=== PATIENT | male | born 1990 | race Caucasian/White ===

== ENCOUNTER → 2018-03-03 | Outpatient (CLI) | payer OTHER ==
[~2018-03-03] MED LIST: METOPROLOL TARTRATE 5 MG/5 ML VIAL IVP ONE
--- NOTE | 2018-03-03 11:23 | NM ---
EXAMINATION TYPE: NM stress cardiolite complete DATE OF EXAM: 03/03/2018 COMPARISON: NONE HISTORY: Precordial chest pain TECHNIQUE: After the intravenous administration of 10.02 mCi Tc 99m Sestamibi - Rest images obtained 45 minutes post injection. The patient exercised using a SIMONE protocol and 1 minute prior to peak exercise was injected with 25.5 mCi Tc 99m Sestamibi - Stress images obtained 10 minutes post inject ion. FINDINGS: Targeted heart rate was achieved during performance of the study. Review of stress and rest SPECT vipin ges demonstrates decreased perfusion involving the inferior wall and inferolateral wall on stress vipin ges. Stress-induced ischemia is not excluded. Gated analysis shows normal wall motion with an estimat ed left ventricular ejection fraction of 53 %. IMPRESSION: Stress-induced ischemia involving the inferior wall and inferior lateral wall difficult to exclude.
--- NOTE | 2018-03-03 14:12 | EST ---
EXERCISE STRESS DATE OF SERVICE: March 03, 2018 AGE: 27 SEX: M HT: 72" WT: 250 PROTOCOL: Cardiolite Satish Stress Test STAGE: II DURATION OF EXERCISE: 6::50 HEART RATE REST: 118 BLOOD PRESSURE REST: 144/87 MAXIMUM HEART RATE ACHIEVED: 196 MAXIMUM BLOOD PRESSURE: 219/86 85% MPHR: 166 100% MPHR: 195 METS: 8.1 INDICATIONS: Abnormal EKG CLINICAL INFORMATION: STRESS DATA: Pretesting physical examination showed heart rate of 118, pressure is 144/82 mmHg. Baseline EKG showed sinus mechanism. The patient exercised on the treadmill according to Satish protocol for a total of 6 minutes and achieved 8.1 METS. Max heart rate was 196, which is about 100% of maximum predicted heart rate. Maximum blood pressure was 219/86 mmHg. Clinically, the patient did not have any symptoms of chest pain or chest discomfort during the testing or in the recovery time. The EKG did not show any significant ST or T-wave abnormalities concerning for ischemia. CONCLUSION: 1. Average exercise tolerance. 2. Normal EKG in response to exercise without any evidence of ST or T-wave abnormalities concerning for ischemia. 3. Please follow up on the Cardiolite portion on separate report from Radiology Department. MMODL / IJN: [id number] /
== END | disposition home or self-care (01) ==
LOC: RADNMMAIN 07:44
PROVIDERS: ATTEND Family Medicine
DX: R94.31 Abnormal electrocardiogram [ECG] [EKG] (principal)
CPT/HCPCS: 93017; 78452; A9500

== ENCOUNTER 2020-04-13 12:35 | Emergency (ER) | payer BC, OTHER ==
[2020-04-13 12:47] VITALS: RESP 20
[2020-04-13] MEDS ORDERED: diphenhydrAMINE 50 MG/ML 1 ML VIAL IVP STA (12:58)
[2020-04-13] MEDS ORDERED: SODIUM CHLORIDE 0.9% 1,000 ML IV STA (12:58)
[2020-04-13] MEDS ORDERED: METOCLOPRAMIDE 5 MG/ML 2 ML VIAL IVP STA (12:58)
--- NOTE | 2020-04-13 13:15 | ED ---
General Adult HPI - General Source: patient, RN notes reviewed Mode of arrival: ambulatory Limitations: no limitations <Bhaskar Gtz - Last Filed: 04/13/20 14:26> <Adriel Maynard - Last Filed: 04/13/20 14:51> - General Chief complaint: Headache Stated complaint: Migraine Time Seen by Provider: 04/13/20 12:52 - History of Present Illness Initial comments: 29-year-old male presents to the emergency room for a chief complaint of headache 10 days. Patient reports that he developed a headache 10 days ago. Patient states it is a throbbing around the left eye. Patient states she is sensitive to light and sound. He denies nausea vomiting. He denies neck stiffness. Denies fevers or chills. He did go to urgent care and had an injection of Toradol did not help. He was directed to come to the emergency room if his symptoms were not improving.Patient has no other complaints at this time including shortness of breath, chest pain, abdominal pain, nausea or vomiting, or visual changes. (Bhaskar Gtz) - Related Data Home Medications Medication Instructions Recorded Confirmed Cetirizine HCl [Zyrtec] 10 mg PO DAILY 03/10/15 04/13/20 Cholecalciferol [Vitamin D3 (25 1,000 unit PO DAILY 04/13/20 04/13/20 Mcg = 1000 Iu)] Levothyroxine Sodium [Synthroid] 200 mcg PO DAILY 04/13/20 04/13/20 Metoprolol Succinate (ER) [Toprol 25 mg PO DAILY 04/13/20 04/13/20 Xl] Ondansetron Odt [Zofran Odt] 4 mg PO Q8HR PRN 04/13/20 04/13/20 Rizatriptan Odt [Maxalt [employer]] 10 mg PO DAILY PRN MDD 10MG DAILY 04/13/20 04/13/20 Allergies Allergy/AdvReac Type Severity Reaction Status Date / Time No Known Allergies Allergy Verified 04/13/20 14:18 Review of Systems ROS Other: All systems not noted in ROS Statement are negative. <Bhaskar Gtz - Last Filed: 04/13/20 14:26> ROS Other: All systems not noted in ROS Statement are negative. <Adriel Maynard - Last Filed: 04/13/20 14:51> ROS Statement: Those systems with pertinent positive or pertinent negative responses have been documented in the HPI. Past Medical History Past Medical History: Thyroid Disorder Additional Past Medical History / Comment(s): elevated heart rate History of Any Multi-Drug Resistant Organisms: None Reported Past Surgical History: Orthopedic Surgery, Tonsillectomy Additional Past Surgical History / Comment(s): RT KNEE ARTHROSCOPY, LEFT WRIST, SINUS SX Past Anesthesia/Blood Transfusion Reactions: No Reported Reaction Past Psychological History: No Psychological Hx Reported Smoking Status: Never smoker Past Alcohol Use History: Occasional Past Drug Use History: None Reported - Past Family History Mother Family Medical History: No Reported History <Bhaskar Gtz P - Last Filed: 04/13/20 14:26> General Exam Limitations: no limitations General appearance: alert, in no apparent distress Head exam: Present: atraumatic, normocephalic, normal inspection Eye exam: Present: normal appearance, PERRL, EOMI. Absent: scleral icterus, conjunctival injection, periorbital swelling ENT exam: Present: normal exam, mucous membranes moist Neck exam: Present: normal inspection, full ROM. Absent: tenderness, meningismus, lymphadenopathy Respiratory exam: Present: normal lung sounds bilaterally. Absent: respiratory distress, wheezes, rales, rhonchi, stridor Cardiovascular Exam: Present: regular rate, normal rhythm, normal heart sounds. Absent: systolic murmur, diastolic murmur, rubs, gallop, clicks GI/Abdominal exam: Present: soft, normal bowel sounds. Absent: distended, tenderness, guarding, rebound, rigid Neurological exam: Present: alert, oriented X3, CN II-XII intact, normal gait Expanded Patient oriented to: Present: person, place, time Speech: Present: fluid speech Cranial nerves: Tongue Deviation: Normal, Nystagmus: Normal, Facial Sensation: Normal Cerebellar function: Finger to Nose: Normal, Heel to Albert: Normal Upper motor neuron: Pronator Drift: Normal Sensory exam: Upper Extremity Light Touch: Normal, Upper Extremity Pin Prick: Normal, Lower Extremity Light Touch: Normal, Lower Extremity Pin Prick: Normal Motor strength exam: RUE: 5, LUE: 5, RLE: 5, LLE: 5 <Bhaskar Gtz P - Last Filed: 04/13/20 14:26> Course Vital Signs 04/13/20 12:43 Temperature 98.5 F Pulse Rate 116 H Respiratory 20 Rate Blood Pressure 144/65 O2 Sat by Pulse 95 Oximetry Medical Decision Making <Bhaskar Gtz - Last Filed: 04/13/20 14:26> - Radiology Data Radiology results: report reviewed (Computed tomography scan of the brain shows no acute intercranial abnormality, questionable prominence left sylvian fissure, cannot exclude aneurysm. CT angios was done of [place] with no evidence of aneurysm.) <Adriel Maynard - Last Filed: 04/13/20 14:51> - Medical Decision Making Patient has had a headache for 10 days. States this started throughout the morning 10 days ago. When he took a nap and woke up at worsen. No thunderclap headache. No focal neurologic deficits. CT brain showed no acute intracranial abnormality seen however there was a bulbous prominence at the anterior left sylvian fissure, recommending MRA [place] to exclude intracranial aneurysm. I did speak with Dr. Dominguez regarding recommendation of MRA. He is agreeable that CTA will be an appropriate study for this however does not believe it to be an emergent cause of patient's headache. He does not see any associated bleeding. Patient care was signed out to Dr. Maynard at 1430 pending CTA. (Bhaskar Gtz) Patient reexamined and reevaluated by myself, Dr. Maynard. Patient resting comfortably in bed. I do agree. Findings. This includes diagnostic interpretation and treatment plan. Patient states he is feeling better following medications. Patient is updated on results and need for follow-up. (Adriel Maynard) Disposition <Bhaskar Gtz - Last Filed: 04/13/20 14:26> Is patient prescribed a controlled substance at d/c from ED?: No Time of Disposition: 14:51 <Adriel Maynard - Last Filed: 04/13/20 14:51> Clinical Impression: Cephalgia Disposition: HOME SELF-CARE Condition: Stable Instructions (If sedation given, give patient instructions): Acute Headache (ED) Additional Instructions: Please follow-up with primary care physician in the next couple days for recheck. Return for increased pain, weakness, fevers, change in mental status, worsening symptoms or other concerns. Referrals: Helder Shipley MD [Primary Care Provider] - 1-2 days
--- NOTE | 2020-04-13 13:26 | CT ---
EXAMINATION TYPE: CT brain wo con DATE OF EXAM: 04/13/2020 COMPARISON: None HISTORY: 29-year-old male headache, migraine for 10 days TECHNIQUE: Examination was done in axial plane without intravenous contrast. Coronal and sagittal r econstructions performed. CT DLP: 1099.4 mGycm Automated exposure control for dose reduction was used. FINDINGS: There is no evidence of acute intracranial hemorrhage, acute ischemic changes, mass, mass-effect, or extra-axial fluid collection. There is no effacement of cerebral sulci or basal subarachnoid cister ns. There is no hydrocephalus. There is no midline shift. Cohen-white matter distinction is preserv ed. 6 to 7 mm bulbous prominence at the anterior left sylvian fissure on axial image 20 on and coronal im age 32. Mild mucosal thickening right ethmoid air cells. Mastoid air cells are well pneumatized. Orbits and g lobes are intact. IMPRESSION: 1. No acute intracranial abnormality seen. 2. 6 to 7 mm bulbous prominence at the anterior left sylvian fissure is in the vicinity of the expect ed left MCA bifurcation. Recommend MRA [place] to exclude an intracranial aneurysm.
[2020-04-13] MEDS ORDERED: MORPHINE SULFATE 4 MG/ML SYRINGE IVP STA (13:34)
--- NOTE | 2020-04-13 14:39 | CT ---
EXAMINATION TYPE: CT angio C[facility] [place] [facility] [place] DATE OF EXAM: 04/13/2020 COMPARISON: None HISTORY: GR, abn brain CT CT DLP: 1092.6 mGycm Automated exposure control for dose reduction was used. CONTRAST: Performed with IV Contrast, patient injected with 100 mL of Isovue 370. Images were obtained from the skull base to the vertex of the brain with IV contrast and 3-D post pro cessed images. There is arterial flow in the vertebrobasilar artery system. There is arterial flow in the anterior m iddle and posterior cerebral arteries. There is no evidence of intracranial aneurysm or neovascularit y. There is no evidence of hemodynamic stenosis. There is normal contrast opacification of the venous sinuses. There is no mass effect. IMPRESSION: Negative CT angiogram of the brain. The area of increased density in the anterior left sylvian fissur e on the CT scan appears to be confluence of branches of the left middle cerebral artery and not rela minnie to an aneurysm.
[2020-04-13 15:04] VITALS: BP 129/88; PULSE 95; TEMP 98.2
== END 2020-04-13 15:03 | disposition home or self-care (01) ==
LOC: EC 12:35
DX: R51.9 Headache, unspecified (principal); R94.02 Abnormal brain scan; E07.9 Disorder of thyroid, unspecified; Z79.890 Hormone replacement therapy; Z79.899 Other long term (current) drug therapy
CPT/HCPCS: 70496; 70450; 99284; 96374; 96375 ×2; 96361; J2270; J1200; J2765; Q9967

== ENCOUNTER 2020-10-01 20:25 | Emergency (ER) | payer BC ==
[2020-10-01] MEDS ORDERED: ONDANSETRON 4 MG/2 ML VIAL IVP STA (20:36)
[2020-10-01] MEDS ORDERED: diphenhydrAMINE 50 MG/ML 1 ML VIAL IVP STA (20:36)
[2020-10-01] MEDS ORDERED: SODIUM CHLORIDE 0.9% 1,000 ML IV STA (20:36)
[2020-10-01] MEDS ORDERED: MORPHINE SULFATE 4 MG/ML SYRINGE IV STA (20:36)
--- NOTE | 2020-10-01 20:40 | ED ---
Headache HPI - General Chief Complaint: Headache Stated Complaint: Headache Time Seen by Provider: 10/01/20 20:32 Source: patient, RN notes reviewed Mode of arrival: ambulatory Limitations: no limitations - History of Present Illness Initial Comments: Patient is a 30-year-old male that presents to emergency by complaining of headaches for the past 3 weeks. He notes that the headaches come and go several times of the day. He notes that the headache mostly is behind his left eye causing photophobia and nausea. He denied any trauma. He notes that he was diagnosed with migraines last year. But his primary care thinks the step headaches or cluster type headaches as there are located behind one eye last for several hours and go away. Patient is taking all his at home prescriptions as prescribed. He noted that his primary sent him to the emergency room to potentially try high oxygen flow therapy to see if that alleviates any the pain. Patient denied any other symptoms or complaints. He notes the pain is approximately 8 out of 10 when the headaches come on. He denied any chest pain shortness of breath vomiting diarrhea constipation fever fatigue chills. Patient denied any family history of aneurysms. - Related Data Home Medications Medication Instructions Recorded Confirmed Cetirizine HCl [Zyrtec] 10 mg PO DAILY PRN 03/10/15 10/01/20 Cholecalciferol [Vitamin D3 (25 1,000 unit PO DAILY 04/13/20 10/01/20 Mcg = 1000 Iu)] Levothyroxine Sodium [Synthroid] 200 mcg PO DAILY 04/13/20 10/01/20 Ondansetron Odt [Zofran Odt] 4 mg PO Q8HR PRN 04/13/20 10/01/20 Rizatriptan Odt [Maxalt [employer]] 10 mg PO DAILY PRN MDD 10MG DAILY 04/13/20 10/01/20 HYDROcodone/APAP 7.5-325MG [[place] 1 tab PO Q6H PRN 10/01/20 10/01/20 7.5-325] Metoprolol Succinate [Toprol XL] 50 mg PO DAILY 10/01/20 10/01/20 Ubrogepant [Ubrelvy] 100 mg PO DAILY PRN 10/01/20 10/01/20 Verapamil HCl [Verapamil ER] 240 mg PO DAILY 10/01/20 10/01/20 traZODone HCL [Desyrel] 50 mg PO HS PRN 10/01/20 10/01/20 Allergies Allergy/AdvReac Type Severity Reaction Status Date / Time No Known Allergies Allergy Verified 10/01/20 21:47 Review of Systems ROS Statement: Those systems with pertinent positive or pertinent negative responses have been documented in the HPI. ROS Other: All systems not noted in ROS Statement are negative. Past Medical History Past Medical History: Thyroid Disorder Additional Past Medical History / Comment(s): elevated heart rate, migraines and cluster headaches History of Any Multi-Drug Resistant Organisms: None Reported Past Surgical History: Orthopedic Surgery, Tonsillectomy Additional Past Surgical History / Comment(s): RT KNEE ARTHROSCOPY, LEFT WRIST, SINUS SX Past Anesthesia/Blood Transfusion Reactions: No Reported Reaction Past Psychological History: No Psychological Hx Reported Smoking Status: Never smoker Past Alcohol Use History: Occasional Past Drug Use History: None Reported - Past Family History Mother Family Medical History: No Reported History General Exam Limitations: no limitations General appearance: alert, in no apparent distress, obese Head exam: Present: atraumatic, normocephalic, normal inspection Eye exam: Present: normal appearance, PERRL, EOMI. Absent: scleral icterus, conjunctival injection, periorbital swelling Neck exam: Present: normal inspection Respiratory exam: Present: normal lung sounds bilaterally. Absent: respiratory distress, wheezes, rales, rhonchi, stridor Cardiovascular Exam: Present: regular rate, normal rhythm, normal heart sounds. Absent: systolic murmur, diastolic murmur, rubs, gallop, clicks GI/Abdominal exam: Present: soft, normal bowel sounds. Absent: distended, tenderness, guarding, rebound, rigid Extremities exam: Present: normal inspection, full ROM, normal capillary refill. Absent: tenderness, pedal edema, joint swelling, calf tenderness Neurological exam: Present: alert, oriented X3 Psychiatric exam: Present: normal affect, normal mood Skin exam: Present: warm, dry, intact, normal color. Absent: rash Course Vital Signs 10/01/20 20:29 Temperature 98.6 F Pulse Rate 109 H Respiratory 22 Rate Blood Pressure 155/98 O2 Sat by Pulse 96 Oximetry Medical Decision Making - Medical Decision Making 30-year-old male complaining of cluster type headache on and off for the last 3 weeks. 1 L normal saline, 4 mg of morphine, 50 mg of Benadryl, 4 mg Zofran, 6 L of oxygen via nasal cannula ordered. Per local symptoms and patient's primary care patient was [facility] and cluster headaches. After medication and oxygen therapy patient states that he is feeling much better and would like to go home. Case discussed with Dr. Stone, patient can discharge home with follow-up to primary care and neurology as scheduled. Disposition Clinical Impression: Cluster headaches Disposition: HOME SELF-CARE Condition: Stable Instructions (If sedation given, give patient instructions): Acute Headache (ED), Cluster Headache (ED) Additional Instructions: Please return to the Emergency Department if symptoms worsen or any other concerns. Continue to follow-up with primary care. Take at home medications as prescribed. Follow-up with neurology as planned. Is patient prescribed a controlled substance at d/c from ED?: No Referrals: Helder Shipley MD [Primary Care Provider] - 1-2 days Time of Disposition: 21:57
[2020-10-01] MEDS ORDERED: MORPHINE SULFATE 4 MG/ML SYRINGE IVP STA (21:27)
[2020-10-01 22:17] VITALS: BP 128/93; PULSE 82; RESP 18; TEMP 98.5
== END 2020-10-01 22:15 | disposition home or self-care (01) ==
LOC: EC 20:25
DX: G44.009 Cluster headache syndrome, unspecified, not intractable (principal); E07.9 Disorder of thyroid, unspecified; Z79.890 Hormone replacement therapy
CPT/HCPCS: 96374; 96375; 96376; 96361; 99284; J2270; J1200; J2405

== ENCOUNTER 2021-07-27 12:39 | Emergency (ER) | payer BC ==
[2021-07-27 12:47] VITALS: TEMP 98
[2021-07-27 12:55] LABS: Glucose,Whole Blood 131 mg/dL (75-99)
[2021-07-27] MEDS ORDERED: SODIUM CHLORIDE 0.9% 1,000 ML IV STA (13:06)
--- NOTE | 2021-07-27 13:14 | ED ---
General Adult HPI - General Chief complaint: Recheck/Abnormal Lab/Rx Stated complaint: low blood sugar Time Seen by Provider: 07/27/21 12:57 Source: patient, RN notes reviewed, old records reviewed Mode of arrival: wheelchair Limitations: no limitations - History of Present Illness Initial comments: 22-year-old male presents for evaluation of hypoglycemia. Patient is not a diabetic, not on any blood sugar lowering medications or insulin. He felt kehinde ewhat lightheaded with nausea and checked his blood sugar at home. This was after eating. Parents for breakfast. His blood sugar was 70 so he ate some cookies. His blood sugar did not improve when he presented to the emergency department for evaluation. He also complains of some diarrhea which began last night. No measured fever. - Related Data Home Medications Medication Instructions Recorded Confirmed Cetirizine HCl [Zyrtec] 10 mg PO DAILY 03/10/15 07/27/21 Cholecalciferol [Vitamin D3 (25 100 mcg PO DAILY 04/13/20 07/27/21 Mcg = 1000 Iu)] Levothyroxine Sodium [Synthroid] 200 mcg PO DAILY 04/13/20 07/27/21 Metoprolol Succinate [Toprol XL] 50 mg PO DAILY 10/01/20 07/27/21 Citalopram Hydrobromide [CeleXA] 20 mg PO DAILY 07/27/21 07/27/21 Omeprazole Magnesium [PriLOSEC OTC] 20 mg PO HS 07/27/21 07/27/21 busPIRone HCL [Buspar] 7.5 mg PO BID 07/27/21 07/27/21 traZODone HCL [Desyrel] 100 mg PO HS 07/27/21 07/27/21 Allergies Allergy/AdvReac Type Severity Reaction Status Date / Time No Known Allergies Allergy Verified 07/27/21 14:36 Review of Systems ROS Statement: Those systems with pertinent positive or pertinent negative responses have been documented in the HPI. ROS Other: All systems not noted in ROS Statement are negative. Past Medical History Past Medical History: Thyroid Disorder Additional Past Medical History / Comment(s): elevated heart rate, migraines and cluster headaches History of Any Multi-Drug Resistant Organisms: None Reported Past Surgical History: Orthopedic Surgery, Tonsillectomy Additional Past Surgical History / Comment(s): RT KNEE ARTHROSCOPY, LEFT WRIST, SINUS SX Past Anesthesia/Blood Transfusion Reactions: No Reported Reaction Past Psychological History: No Psychological Hx Reported Smoking Status: Never smoker Past Alcohol Use History: Occasional Past Drug Use History: None Reported - Past Family History Mother Family Medical History: No Reported History General Exam Limitations: no limitations General appearance: alert, in no apparent distress Head exam: Present: atraumatic, normocephalic Eye exam: Present: normal appearance, PERRL ENT exam: Present: mucous membranes dry Neck exam: Present: normal inspection. Absent: tenderness, meningismus Respiratory exam: Present: normal lung sounds bilaterally. Absent: respiratory distress, wheezes Cardiovascular Exam: Present: normal rhythm, tachycardia GI/Abdominal exam: Present: soft. Absent: distended, tenderness, guarding, rebound Extremities exam: Present: normal inspection, normal capillary refill. Absent: pedal edema, calf tenderness Neurological exam: Present: alert, oriented X3. Absent: motor sensory deficit Psychiatric exam: Present: normal affect, normal mood Skin exam: Present: warm, dry, intact. Absent: cyanosis, diaphoretic Course Vital Signs 07/27/21 07/27/21 12:45 14:00 Temperature 98 F Pulse Rate 116 H 98 Respiratory 16 18 Rate Blood Pressure 158/125 132/82 O2 Sat by Pulse 98 98 Oximetry EKG Findings - EKG Comments: EKG Findings:: EKG: Sinus tachycardia rate of 104, S1 every 3 T3 pattern TX interval 151, QRS duration 97, QTC 381 Medical Decision Making - Medical Decision Making 22-year-old male with an episode of hypoglycemia. Patient had an initial normal blood glucose followed by testing with the CBC, CMP, laboratory tests including d-dimer and troponin. This does show normal laboratory testing. Patient feels better on reevaluation. He will follow with his primary regarding this episode of hypoglycemia. - Lab Data Result diagrams: 07/27/21 13:08 07/27/21 13:08 Lab Results 07/27/21 07/27/21 07/27/21 Range/Units 12:44 13:08 13:08 WBC 7.5 (3.8-10.6) k/uL RBC 5.69 (4.30-5.90) m/uL Hgb 17.4 (13.0-17.5) gm/dL Hct 50.7 (39.0-53.0) % MCV 89.1 (80.0-100.0) fL MCH 30.7 (25.0-35.0) pg MCHC 34.4 (31.0-37.0) g/dL RDW 12.2 (11.5-15.5) % Plt Count 288 (150-450) k/uL MPV 7.3 Neutrophils % 66 % Lymphocytes % 22 % Monocytes % 7 % Eosinophils % 3 % Basophils % 2 % Neutrophils # 4.9 (1.3-7.7) k/uL Lymphocytes # 1.6 (1.0-4.8) k/uL Monocytes # 0.5 (0-1.0) k/uL Eosinophils # 0.2 (0-0.7) k/uL Basophils # 0.1 (0-0.2) k/uL PT 9.9 (9.0-12.0) sec INR 0.9 (<1.2) APTT 22.7 (22.0-30.0) sec D-Dimer 0.25 (<0.60) mg/L FEU Sodium (137-145) mmol/L Potassium (3.5-5.1) mmol/L Chloride (98-107) mmol/L Carbon Dioxide (22-30) mmol/L Anion Gap mmol/L BUN (9-20) mg/dL Creatinine (0.66-1.25) mg/dL Est GFR (CKD-EPI)AfAm (>60 ml/min/1.73 sqM) Est GFR (CKD-EPI)NonAf (>60 ml/min/1.73 sqM) Glucose (74-99) mg/dL POC Glucose (mg/dL) 131 H (75-99) mg/dL POC Glu Cnc Laser Operator ID Anaya Kimble Plasma Lactic Acid Godwin (0.7-2.0) mmol/L Calcium (8.4-10.2) mg/dL Magnesium (1.6-2.3) mg/dL Total Bilirubin (0.2-1.3) mg/dL AST (17-59) U/L ALT (4-49) U/L Alkaline Phosphatase (38-126) U/L Troponin I (0.000-0.034) ng/mL Total Protein (6.3-8.2) g/dL Albumin (3.5-5.0) g/dL Urine Color Urine Appearance (Clear) Urine pH (5.0-8.0) Ur Specific [place] (1.001-1.035) Urine Protein (Negative) Urine Glucose (UA) (Negative) Urine Ketones (Negative) Urine Blood (Negative) Urine Nitrite (Negative) Urine Bilirubin (Negative) Urine Urobilinogen (<2.0) mg/dL Ur Leukocyte Esterase (Negative) 07/27/21 07/27/21 07/27/21 Range/Units 13:08 13:08 13:08 WBC (3.8-10.6) k/uL RBC (4.30-5.90) m/uL Hgb (13.0-17.5) gm/dL Hct (39.0-53.0) % MCV (80.0-100.0) fL MCH (25.0-35.0) pg MCHC (31.0-37.0) g/dL RDW (11.5-15.5) % Plt Count (150-450) k/uL MPV Neutrophils % % Lymphocytes % % Monocytes % % Eosinophils % % Basophils % % Neutrophils # (1.3-7.7) k/uL Lymphocytes # (1.0-4.8) k/uL Monocytes # (0-1.0) k/uL Eosinophils # (0-0.7) k/uL Basophils # (0-0.2) k/uL PT (9.0-12.0) sec INR (<1.2) APTT (22.0-30.0) sec D-Dimer (<0.60) mg/L FEU Sodium 137 (137-145) mmol/L Potassium 4.0 (3.5-5.1) mmol/L Chloride 106 (98-107) mmol/L Carbon Dioxide 22 (22-30) mmol/L Anion Gap 9 mmol/L BUN 12 (9-20) mg/dL Creatinine 1.01 (0.66-1.25) mg/dL Est GFR (CKD-EPI)AfAm >90 (>60 ml/min/1.73 sqM) Est GFR (CKD-EPI)NonAf >90 (>60 ml/min/1.73 sqM) Glucose 93 (74-99) mg/dL POC Glucose (mg/dL) (75-99) mg/dL POC Glu Cnc Laser Operator ID Plasma Lactic Acid God[place] 1.7 (0.7-2.0) mmol/L Calcium 9.4 (8.4-10.2) mg/dL Magnesium 1.9 (1.6-2.3) mg/dL Total Bilirubin 0.5 (0.2-1.3) mg/dL AST 24 (17-59) U/L ALT 17 (4-49) U/L Alkaline Phosphatase 81 (38-126) U/L Troponin I (0.000-0.034) ng/mL Total Protein 7.3 (6.3-8.2) g/dL Albumin 4.5 (3.5-5.0) g/dL Urine Color Colorless Urine Appearance Clear (Clear) Urine pH 6.5 (5.0-8.0) Ur Specific [place] 1.002 (1.001-1.035) Urine Protein Negative (Negative) Urine Glucose (UA) Negative (Negative) Urine Ketones Negative (Negative) Urine Blood Negative (Negative) Urine Nitrite Negative (Negative) Urine Bilirubin Negative (Negative) Urine Urobilinogen <2.0 (<2.0) mg/dL Ur Leukocyte Esterase Negative (Negative) 07/27/21 07/27/21 Range/Units 13:08 14:31 WBC (3.8-10.6) k/uL RBC (4.30-5.90) m/uL Hgb (13.0-17.5) gm/dL Hct (39.0-53.0) % MCV (80.0-100.0) fL MCH (25.0-35.0) pg MCHC (31.0-37.0) g/dL RDW (11.5-15.5) % Plt Count (150-450) k/uL MPV Neutrophils % % Lymphocytes % % Monocytes % % Eosinophils % % Basophils % % Neutrophils # (1.3-7.7) k/uL Lymphocytes # (1.0-4.8) k/uL Monocytes # (0-1.0) k/uL Eosinophils # (0-0.7) k/uL Basophils # (0-0.2) k/uL PT (9.0-12.0) sec INR (<1.2) APTT (22.0-30.0) sec D-Dimer (<0.60) mg/L FEU Sodium (137-145) mmol/L Potassium (3.5-5.1) mmol/L Chloride (98-107) mmol/L Carbon Dioxide (22-30) mmol/L Anion Gap mmol/L BUN (9-20) mg/dL Creatinine (0.66-1.25) mg/dL Est GFR (CKD-EPI)AfAm (>60 ml/min/1.73 sqM) Est GFR (CKD-EPI)NonAf (>60 ml/min/1.73 sqM) Glucose (74-99) mg/dL POC Glucose (mg/dL) 109 H (75-99) mg/dL POC Glu Cnc Laser Operator ID Prasad Diaz Plasma Lactic Acid God[place] (0.7-2.0) mmol/L Calcium (8.4-10.2) mg/dL Magnesium (1.6-2.3) mg/dL Total Bilirubin (0.2-1.3) mg/dL AST (17-59) U/L ALT (4-49) U/L Alkaline Phosphatase (38-126) U/L Troponin I <0.012 (0.000-0.034) ng/mL Total Protein (6.3-8.2) g/dL Albumin (3.5-5.0) g/dL Urine Color Urine Appearance (Clear) Urine pH (5.0-8.0) Ur Specific [place] (1.001-1.035) Urine Protein (Negative) Urine Glucose (UA) (Negative) Urine Ketones (Negative) Urine Blood (Negative) Urine Nitrite (Negative) Urine Bilirubin (Negative) Urine Urobilinogen (<2.0) mg/dL Ur Leukocyte Esterase (Negative) Disposition Clinical Impression: Hypoglycemia Disposition: HOME SELF-CARE Condition: Good Instructions (If sedation given, give patient instructions): Non-diabetic Hypoglycemia (ED) Is patient prescribed a controlled substance at d/c from ED?: No Referrals: Helder Shipley MD [Primary Care Provider] - 1-2 days Time of Disposition: 14:55
[2021-07-27 13:18] LABS: Basophils # (A) 0.1 k/uL (0-0.2); Basophils % (A) 2 %; Eosinophils # (A) 0.2 k/uL (0-0.7); Eosinophils % (A) 3 %; HCT 50.7 % (39.0-53.0); HGB 17.4 gm/dL (13.0-17.5); Lymphocytes # (A) 1.6 k/uL (1.0-4.8); Lymphocytes % (A) 22 %; MCH 30.7 pg (25.0-35.0); MCHC 34.4 g/dL (31.0-37.0); MCV 89.1 fL (80.0-100.0); Mean Platelet Volume 7.3; Monocytes # (A) 0.5 k/uL (0-1.0); Monocytes % (A) 7 %; Neutrophils # (A) 4.9 k/uL (1.3-7.7); Neutrophils % (A) 66 %; Platelet Count 288 k/uL (150-450); RBC 5.69 m/uL (4.30-5.90); RDW 12.2 % (11.5-15.5); WBC 7.5 k/uL (3.8-10.6)
[2021-07-27 13:29] LABS: ALT 17 U/L (4-49); AST 24 U/L (17-59); African American GFR (CKD) >90 (>60 ml/min/1.73 sqM); Albumin 4.5 g/dL (3.5-5.0); Alkaline Phosphatase 81 U/L (38-126); Anion Gap 9 mmol/L; Blood Urea Nitrogen 12 mg/dL (9-20); Calcium 9.4 mg/dL (8.4-10.2); Carbon Dioxide 22 mmol/L (22-30); Chloride 106 mmol/L (98-107); Glucose 93 mg/dL (74-99); Magnesium 1.9 mg/dL (1.6-2.3); Non-African American GFR(CKD) >90 (>60 ml/min/1.73 sqM); Sodium 137 mmol/L (137-145); Total Bilirubin 0.5 mg/dL (0.2-1.3); Total Protein 7.3 g/dL (6.3-8.2)
[2021-07-27 13:36] LABS: Appearance,Urine Clear (Clear); Bilirubin,Urine Negative (Negative); Blood,Urine Negative (Negative); Color,Urine Colorless; Glucose,Urine (UA) Negative (Negative); Ketones,Urine Negative (Negative); Leukocyte Esterase,Urine Negative (Negative); Nitrite,Urine Negative (Negative); PH, Urine 6.5 (5.0-8.0); Protein,Urine Negative (Negative); Specific Gravity,Urine 1.002 (1.001-1.035); Urobilinogen,Urine <2.0 mg/dL (<2.0)
[2021-07-27 14:05] LABS: INR 0.9 (<1.2); Partial Thromboplastin Time 22.7 sec (22.0-30.0); Prothrombin Time 9.9 sec (9.0-12.0)
[2021-07-27 14:14] VITALS: RESP 18
[2021-07-27 14:34] LABS: Glucose,Whole Blood 109 mg/dL (75-99)
[2021-07-27 15:10] VITALS: BP 138/92; PULSE 101
== END 2021-07-27 15:09 | disposition home or self-care (01) ==
LOC: EC 12:39
DX: E16.2 Hypoglycemia, unspecified (principal); E07.9 Disorder of thyroid, unspecified; Z79.899 Other long term (current) drug therapy
CPT/HCPCS: 36415; 80053; 81003; 83605; 83735; 84484; 85025; 85379; 85610; 85730; 93005; 96360; 99284

== ENCOUNTER 2021-08-23 13:00 | Emergency (ER) | payer BC ==
[2021-08-23 13:04] VITALS: RESP 20; TEMP 98.6
[2021-08-23 13:12] VITALS: BP 140/82; PULSE 85
--- NOTE | 2021-08-23 13:31 | XR ---
Right knee. HISTORY: Pain following trauma COMPARISON: None. TECHNIQUE: 3 views the right knee were obtained. FINDINGS: There is no fracture, dislocation, intraosseous or intra-articular abnormality. There is no radiopaqu e foreign body or abnormal soft tissue calcification. There is no joint effusion. IMPRESSION: No significant abnormality seen.
[2021-08-23] MEDS ORDERED: DIPH,PERTUS(ACELL)TETVAC-LF 0.5 ML VIAL IM ONE (14:16)
[2021-08-23] MEDS ORDERED: LIDOCAINE/EPINEPHR/TETRACAINE 5 ML BOTTLE TOPICAL ONE (14:16)
[2021-08-23] MEDS ORDERED: HYDROcodone/APAP 5-325MG 1 EACH TAB PO STA (14:17)
--- NOTE | 2021-08-23 14:23 | ED ---
Lower Extremity Injury HPI - General Chief Complaint: Extremity Injury, Lower Stated Complaint: Rt Knee Injury Time Seen by Provider: 08/23/21 14:03 Source: patient, family, RN notes reviewed Mode of arrival: ambulatory Limitations: no limitations - History of Present Illness Initial Comments: This is a 30-year-old male who presents emergency department for right knee pain. States that he was walking up steps when he tripped, landing on the right knee. This occurred on his back porch on metal steps. The incident occurred just a couple of hours prior to arrival. States that he is in a significant amount of pain at this time. He has a history of chronic right knee pain and this injury has exacerbated it. He has a laceration on the knee that he applied Neosporin to and bandaged it. He believes that his last Tetanus vaccine was more than 10 years ago. MD Complaint: knee injury Type of Injury: blunt Place: home Context: direct blow - Related Data Home Medications Medication Instructions Recorded Confirmed Cetirizine HCl [Zyrtec] 10 mg PO DAILY 03/10/15 07/27/21 Cholecalciferol [Vitamin D3 (25 100 mcg PO DAILY 04/13/20 07/27/21 Mcg = 1000 Iu)] Levothyroxine Sodium [Synthroid] 200 mcg PO DAILY 04/13/20 07/27/21 Metoprolol Succinate [Toprol XL] 50 mg PO DAILY 10/01/20 07/27/21 Citalopram Hydrobromide [CeleXA] 20 mg PO DAILY 07/27/21 07/27/21 Omeprazole Magnesium [PriLOSEC OTC] 20 mg PO HS 07/27/21 07/27/21 busPIRone HCL [Buspar] 7.5 mg PO BID 07/27/21 07/27/21 traZODone HCL [Desyrel] 100 mg PO HS 07/27/21 07/27/21 Previous Rx's Medication Instructions Recorded Cephalexin [Keflex] 1,000 mg PO Q12HR 5 Days #20 cap 08/23/21 HYDROcodone/APAP 5-325MG [Morse 1 tab PO Q6HR PRN 3 Days #12 tab 08/23/21 5-325] Allergies Allergy/AdvReac Type Severity Reaction Status Date / Time No Known Allergies Allergy Verified 08/23/21 13:04 Review of Systems ROS Statement: Those systems with pertinent positive or pertinent negative responses have been documented in the HPI. ROS Other: All systems not noted in ROS Statement are negative. Constitutional: Denies: fever, chills ENT: Denies: ear pain, throat pain Respiratory: Denies: cough, dyspnea Cardiovascular: Denies: chest pain, palpitations Gastrointestinal: Denies: abdominal pain, nausea, vomiting, diarrhea Musculoskeletal: Reports: other (right knee pain) Skin: Reports: other (laceration on right knee) Past Medical History Past Medical History: Asthma, Thyroid Disorder Additional Past Medical History / Comment(s): elevated heart rate, migraines and cluster headaches, History of Any Multi-Drug Resistant Organisms: None Reported Past Surgical History: Orthopedic Surgery, Tonsillectomy Additional Past Surgical History / Comment(s): RT KNEE ARTHROSCOPY, LEFT WRIST, SINUS SX Past Anesthesia/Blood Transfusion Reactions: No Reported Reaction Past Psychological History: Anxiety, Depression Smoking Status: Never smoker Past Alcohol Use History: Occasional Past Drug Use History: None Reported - Past Family History Mother Family Medical History: No Reported History General Exam Limitations: no limitations General appearance: alert, in no apparent distress Head exam: Present: atraumatic, normocephalic, normal inspection Respiratory exam: Present: normal lung sounds bilaterally. Absent: respiratory distress, wheezes, rales, rhonchi, stridor Cardiovascular Exam: Present: regular rate, normal rhythm, normal heart sounds. Absent: systolic murmur, diastolic murmur, rubs, gallop, clicks Right Knee exam: Present: tenderness, swelling, laceration (3 cm). Absent: deformity, crepitus Neurological exam: Present: alert, oriented X3, CN II-XII intact Psychiatric exam: Present: normal affect, normal mood Skin exam: Present: warm, dry, intact, normal color. Absent: rash Course Vital Signs 08/23/21 13:02 Temperature 98.6 F Pulse Rate 85 Respiratory 20 Rate Blood Pressure 140/82 O2 Sat by Pulse 100 Oximetry Procedures - Laceration Laceration #1 Consent Obtained: verbal consent Indication: laceration Site: lower extremity (right knee) Description: linear Depth: simple, single layer Anesthetic Used: lidocaine 1% (and LET) Amount (mls): 1 Pre-repair: wound explored, irrigated extensively Type of Sutures: nylon Size of Sutures: 4-0 Number of Sutures: 3 Technique: simple, interrupted Medical Decision Making - Medical Decision Making This is a 30-year-old male who presents to the emergency department for right knee pain. X-ray of the right knee revealed no abnormalities. Tetanus status updated. Suturs placed, he is instructed to return in 7-10 days for suture removal. Rx for Keflex and Morse provided. Advised he take the Morse at night until he knows how it affects him. He can take this with Ibuprofen or other antiinflammatory for pain relief. The patient has a long history of knee problems as well as surgery on the right knee. Given this history of knee problems that are further exacerbated by the fall, I am willing to prescribe a 3 day course of Morse. Advised icing the knee for the first 48-72 hours, followed by heat there afterwards. He has a knee brace at home that he will use if needed. Return precautions reviewed in depth, the patient is instructed to return to the emergency department with any new, worsening, or concerning symptoms. Patient verbalized understanding. This case was discussed in detail with the attending ED physician. Presentation, findings, and treatment plan discussed in detail as well. - Radiology Data Radiology results: report reviewed, image reviewed Disposition Clinical Impression: Knee pain, right, Laceration of knee, right Disposition: HOME SELF-CARE Instructions (If sedation given, give patient instructions): Care For Your Stitches (ED), Knee Pain (ED) Additional Instructions: Return to the emergency department with any new, worsening, or concerning symptoms. Follow-up for suture removal in 7-10 days. Ice the knee for the first 48-72 hours, followed by heat there afterwards. Prescriptions: Cephalexin [Keflex] 1,000 mg PO Q12HR 5 Days #20 cap HYDROcodone/APAP 5-325MG [Morse 5-325] 1 tab PO Q6HR PRN 3 Days #12 tab PRN Reason: Pain Is patient prescribed a controlled substance at d/c from ED?: Yes When asked, does pt state using other controlled substances?: No If prescribed controlled substance>3 days was MAPS reviewed?: Prescribed <3 Days Referrals: Helder Shipley MD [Primary Care Provider] - 1-2 days
[2021-08-23] MEDS ORDERED: LIDOCAINE 1% INJ 10MG/ML (5 ML VIAL-PF) SQ STA (14:24)
== END 2021-08-23 15:26 | disposition home or self-care (01) ==
LOC: EC 13:00
DX: S81.011A Laceration without foreign body, right knee, initial encounter (principal); J45.909 Unspecified asthma, uncomplicated; E07.9 Disorder of thyroid, unspecified; K21.9 Gastro-esophageal reflux disease without esophagitis; Z79.83 Long term (current) use of bisphosphonates; Z79.1 Long term (current) use of non-steroidal anti-inflammatories (NSAID); W01.0XXA Fall on same level from slipping, tripping and stumbling without subsequent striking against object, initial encounter
CPT/HCPCS: 73562; 90715; 12032; 99283; 90471; J2001

== ENCOUNTER → 2021-09-30 | Outpatient (CLI) | payer BC ==
--- NOTE | 2021-10-01 11:56 | MR ---
EXAMINATION TYPE: MR knee RT wo con DATE OF EXAM: 09/30/2021 COMPARISON: Outside right knee x-ray September 22, 2021 HISTORY: Right knee pain after recent fall injury. TECHNIQUE: Multiplanar, multisequence imaging of the right knee is performed without IV contrast. FINDINGS: MEDIAL MENISCUS: Anterior and posterior horns are intact without tear. LATERAL MENISCUS: Anterior and posterior horns are intact without tear. CRUCIATE LIGAMENTS: The anterior and posterior cruciate ligaments are intact and unremarkable. COLLATERAL LIGAMENTS: The medial collateral ligament and lateral collateral ligament complex are inta ct and unremarkable. EXTENSOR MECHANISM: Visualized quadriceps and patellar tendons are intact. EFFUSION: No significant suprapatellar joint effusion. POPLITEAL CYST: No popliteal/lowe cyst. TRICOMPARTMENT SPACES: Tricompartment joint spaces are maintained. No significant spurring is seen. CARTILAGE: Tricompartmental articular cartilage is preserved. BONE MARROW SIGNAL: No focal abnormal marrow signal is appreciated. OTHER: No additional significant abnormality is appreciated. IMPRESSION: No meniscal or ligamentous tear is seen.
== END | disposition home or self-care (01) ==
LOC: RADMRIMAIN 19:51
PROVIDERS: ATTEND Orthopaedic Surgery
DX: S89.91XA Unspecified injury of right lower leg, initial encounter (principal); M25.561 Pain in right knee; W19.XXXA Unspecified fall, initial encounter

== ENCOUNTER → 2021-11-10 | Outpatient (CLI) | payer BC ==
[2021-11-10 22:37] LABS: Basophils # (A) 0.09 X 10*3/uL (0.00-0.10); Eosinophils # (A) 0.52 X 10*3/uL (0.04-0.35); Eosinophils % (A) 5.8 %; HCT 47.5 % (39.6-50.0); HGB 16.5 g/dL (13.0-17.0); Immature Grans, Automated 0.2 %; Lymphocytes # (A) 2.71 X 10*3/uL (0.90-5.00); Lymphocytes % (A) 30.4 %; MCH 30.7 pg (27.0-32.0); MCHC 34.7 g/dL (32.0-37.0); MCV 88.3 fL (80.0-97.0); Mean Platelet Volume 10.8 fL (9.5-12.2); Monocytes # (A) 0.65 X 10*3/uL (0.20-1.00); Monocytes % (A) 7.3 %; NRBC Per 100 WBC 0 /100 WBCS (0.0-0.0); Neutrophils # (A) 4.91 X 10*3/uL (1.80-7.70); Neutrophils % (A) 55.3 %; Platelet Count 334 X 10*3/uL (140-440); RBC 5.38 X 10*6/uL (4.40-5.60); RDW 12.2 % (11.5-14.5)
[2021-11-10 22:39] LABS: Anion Gap 11.6 mmol/L (10.00-18.00); Carbon Dioxide 24.2 mmol/L (20.0-27.5); Potassium 3.8 mmol/L (3.5-5.5)
== END | disposition home or self-care (01) ==
LOC: LABPAT 16:11
PROVIDERS: ATTEND Orthopaedic Surgery
DX: Z01.812 Encounter for preprocedural laboratory examination (principal); M23.91 Unspecified internal derangement of right knee
CPT/HCPCS: 80051; 85025

== ENCOUNTER 2021-11-12 10:56 | Day surgery (SDC) | payer BC ==
--- NOTE | 2021-11-11 15:14 | HP ---
HISTORY AND PHYSICAL REASON FOR ADMISSION: Surgery scheduled for 11/12/2021 HISTORY OF PRESENT ILLNESS: Brian Shannon is a 31-year-old gentleman seen with progressive right knee pain. We discussed options for treatment. He elected to proceed with right knee arthroscopy. Consent is obtained. PAST MEDICAL HISTORY: Hypertension, hypothyroidism. SURGICAL HISTORY: Knee arthroscopy, sinus surgery, and wrist surgery. MEDICATIONS: Aleve, metoprolol, Synthroid and Trazodone. ALLERGIES: None. SOCIAL HISTORY: He denies tobacco use. PHYSICAL EVALUATION OF THE RIGHT KNEE: Range of motion 0-120. Mild effusion. Tenderness medial joint line. Positive medial Andre's. Ligaments stable. Hip rotation without pain. His distal neurovascular exam is intact. RADIOGRAPHS: Radiographs of the right knee revealed no osseous abnormality. MRI right knee revealed no abnormality. IMPRESSION: 1. Internal derangement of right knee with osteochondral tear. 2. Hypothyroidism. PLAN: Right knee arthroscopy with chondroplasty and debridement. Surgery is scheduled for 11/12/2021. MMODL / IJN: [id number] /
[~2021-11-12 10:56] MED LIST changes: +DEXAMETHASONE SOD PHOSPHATE 4 MG/ML 1 ML VIAL IV ONE; +HYDROmorphone 0.5 MG/0.5 ML SYRINGE IVP PRN; +LACTATED RINGERS 1,000 ML IV SCH; -METOPROLOL TARTRATE 5 MG/5 ML VIAL IVP ONE; +ONDANSETRON 4 MG/2 ML VIAL IVP ONE
[2021-11-12] MEDS ORDERED: BUPIVACAINE (PF) 0.5% 30 ML VIAL INTRAARTIC ONE ×2 (13:02→13:46)
[2021-11-12] MEDS ORDERED: SUCCINYLCHOLINE CHLORIDE 200 MG/10 ML VIAL IV ONE (13:14)
[2021-11-12] MEDS ORDERED: MIDAZOLAM 2 MG/2 ML VIAL ONE (13:14)
[2021-11-12] MEDS ORDERED: fentaNYL (PF) 50 MCG/ML 2 ML AMP ONE (13:14)
[2021-11-12] MEDS ORDERED: HYDROmorphone (PF) 1 MG/ML ONE (13:14)
[2021-11-12] MEDS ORDERED: PROPOFOL 10 MG/ML 20 ML VIAL IV ONE (13:14)
[2021-11-12] MEDS ORDERED: LIDOCAINE 2% INJ 20 MG/ML (2 ML VIAL) ONE (13:14)
--- NOTE | 2021-11-12 14:02 | P.OP ---
Date of Procedure: 11/12/21 Preoperative Diagnosis: Internal derangement right knee Postoperative Diagnosis: 1. Tear medial and lateral meniscus right knee 2. Reactive synovitis medial, lateral and suprapatellar compartments right knee Procedure(s) Performed: 1. Arthroscopic partial medial and lateral meniscectomy right knee 2. Arthroscopic partial synovectomy medial, lateral and suprapatellar compartments right knee Anesthesia: CHANELA, local Surgeon: Prabhu Agarwal Estimated Blood Loss (ml): 7 Pathology: none sent Condition: stable Disposition: PACU Indications for Procedure: 31-year-old patient seen with progressive right knee pain. After having treatment options discussed, he elected to proceed with arthroscopy. Operative Findings: See description of procedure Description of Procedure: Patient was taken to the operative suite. Patient underwent a general anesthetic by the department of anesthesia. Patient was given preoperative antibiotics. The right lower extremity was placed in a well-padded arthroscopic leg melvin. The right leg was prepped and draped in the normal sterile orthopedic fashion. A lateral parapatellar and suprapatellar incision was made. Trochars were inserted. Arthroscopy was initiated. Suprapatellar pouch revealed diffuse thick reactive synovitis. The patellofemoral joint appeared to articulate congruently. There was no chondromalacia present. The scope was guided into the medial gutter. No loose bodies or plica were identified. The scope was then guided into the medial compartment. A medial parapatellar incision was made. Trocar inserted followed by probe. There was a radial tear involving the posterior horn medial meniscus. There was no significant chondromalacia present. There was some thick reactive synovitis anteriorly. I performed a partial medial meniscectomy getting down to stable meniscal tissue. I performed a partial synovectomy decompressing the thick reactive synovitis anteriorly. The residual meniscus was probed and was found to be stable. There was good decompression of the synovitis. Scope and probe were then guided into the intercondylar notch. Cruciates were identified, probed and found to be stable. The scope and probe were then guided into lateral compartment. There was a small radial tear mid body lateral meniscus. There was some reactive synovitis anteriorly. There was no significant chondromalacia present. I performed a partial lateral meniscectomy. I performed a partial synovectomy. The residual meniscus was probed and was found to be stable. There was good decompression of the synovitis. The scope was in guided back into the suprapatellar compartment. I introduced a motorized shaver into the suprapatellar compartment. I performed a partial synovectomy. The shaver was removed. There was good decompression of the synovitis. I took one more look around the entire knee, no residual debris. Instruments were now removed from the joint. The joint was infiltrated with .25% Marcaine. Steri-Strips were applied to the portal sites. Sterile dressings were applied. The patient was placed into a PEDRO PABLO hose. No tourniquet was utilized. The patient was awakened, transferred to a bed and taken to recovery stable satisfactory condition.
[2021-11-12] MEDS ORDERED: KETOROLAC 15 MG/ML 1 ML VIAL IVP ONE (14:07)
[2021-11-12 14:12] VITALS: TEMP 96.8
[2021-11-12 15:15] VITALS: RESP 16
[2021-11-12 15:36] VITALS: BP 126/84; PULSE 99
== END 2021-11-12 16:04 | disposition home or self-care (01) ==
LOC: OR 10:56
PROVIDERS: ATTEND Orthopaedic Surgery
DX: S83.241A Other tear of medial meniscus, current injury, right knee, initial encounter (principal); S83.281A Other tear of lateral meniscus, current injury, right knee, initial encounter; M65.861 Other synovitis and tenosynovitis, right lower leg; K21.9 Gastro-esophageal reflux disease without esophagitis; R00.0 Tachycardia, unspecified; Z79.890 Hormone replacement therapy; Z79.899 Other long term (current) drug therapy; I10 Essential (primary) hypertension; E03.9 Hypothyroidism, unspecified; X58.XXXA Exposure to other specified factors, initial encounter
CPT/HCPCS: 29880; 29876; J2250; J0330; J1100; J0690; J2405; J3010; J1170 ×2; J1885; J2704; J2001

== ENCOUNTER 2022-09-24 17:07 | Emergency (ER) | payer BC ==
[2022-09-24] MEDS ORDERED: SODIUM CHLORIDE 0.9% 1,000 ML IV STA (18:01)
--- NOTE | 2022-09-24 18:30 | ED ---
General Adult HPI - General Chief complaint: Syncope Stated complaint: syncope Time Seen by Provider: 09/24/22 17:26 Source: family Mode of arrival: wheelchair Limitations: no limitations - History of Present Illness Initial comments: Dictation was produced using [employer] dictation software. please excuse any grammatical, word or spelling errors. Chief Complaint: 32-year-old male with no significant past medical history presents to ER after syncopal episode History of Present Illness: This is 32-year-old male he takes metoprolol for tachycardia. He is out mowing the grass when all was sent here murmurs what can up on the floor. Patient states he did hit his head. Follows unwitnessed. Patient had a syncopal episode 6 months ago. Patient states he feels fatigued and tired. Denies any chest pain. No shortness of breath. The ROS documented in this emergency department record has been reviewed and confirmed by me. Those systems with pertinent positive or negative responses have been documented in the HPI. All other systems are other negative and/or noncontributory. - Related Data Home Medications Medication Instructions Recorded Confirmed Levothyroxine Sodium [Synthroid] 200 mcg PO DAILY 04/13/20 09/24/22 Citalopram Hydrobromide [CeleXA] 20 mg PO DAILY 07/27/21 09/24/22 busPIRone HCL [Buspar] 7.5 mg PO BID 07/27/21 09/24/22 Metoprolol Succinate [Metoprolol 25 mg PO DAILY 09/24/22 09/24/22 Succinate ER] Allergies Allergy/AdvReac Type Severity Reaction Status Date / Time No Known Allergies Allergy Verified 09/24/22 19:30 Review of Systems ROS Statement: Those systems with pertinent positive or pertinent negative responses have been documented in the HPI. ROS Other: All systems not noted in ROS Statement are negative. Past Medical History Past Medical History: GERD/Reflux, Hypertension, Thyroid Disorder Additional Past Medical History / Comment(s): Migraines and cluster headaches. History of Any Multi-Drug Resistant Organisms: None Reported Past Surgical History: Orthopedic Surgery, Tonsillectomy Additional Past Surgical History / Comment(s): LEFT KNEE ARTHROSCOPY, TENDON LEFT WRIST, SINUS SX Past Anesthesia/Blood Transfusion Reactions: No Reported Reaction Past Psychological History: Anxiety, Depression Smoking Status: Never smoker Past Alcohol Use History: Occasional Past Drug Use History: Marijuana - Past Family History Mother Family Medical History: No Reported History General Exam - General Exam Comments Initial Comments: PHYSICAL EXAM: General Impression: Alert and oriented x3, not in acute distress HEENT: Normocephalic atraumatic, extra-ocular movements intact, pupils equal and reactive to light bilaterally, mucous membranes moist. Cardiovascular: Heart regular rate and rhythm Chest: Able to complete full sentences, no retractions, no tachypnea Abdomen: abdomen soft, non-tender, non-distended, no organomegaly Musculoskeletal: Pulses present and equal in all extremities, no peripheral edema Motor: no focal deficits noted Neurological: CN II-XII grossly intact, no focal motor or sensory deficits noted Skin: Intact with no visualized rashes Psych: Normal affect and mood Limitations: no limitations Course Vital Signs 09/24/22 09/24/22 17:18 19:31 Temperature 97.8 F 98.4 F Pulse Rate 121 H 98 Respiratory 20 18 Rate Blood Pressure 105/60 135/78 O2 Sat by Pulse 96 98 Oximetry EKG Findings - EKG Comments: EKG Findings:: My EKG interpretation: Ventricular rate 107, sinus tachycardia,. Interval 162, QRS 106, QTC 46. No KS prolongation, no QTC prolongation, no ST or T-wave changes noted. EKG compared to 07/27/2021 showing no changes. Overall, this EKG is unremarkable Medical Decision Making - Medical Decision Making Was pt. sent in by a medical professional or institution (, PA, SET BUILDER, urgent care, hospital, or long term...) When possible be specific @ -No Did you speak to anyone other than the patient for history (EMS, parent, family, police, friend...)? What history was obtained from this source @ - at the bedside states that he had a syncopal episode several months ago Did you review nursing and triage notes (agree or disagree)? Why? @ -I reviewed and agree with nursing and triage notes Were old charts reviewed (outside hosp., previous admission, EMS record, old EKG, old radiological studies, urgent care reports/EKG's, long term records)? Report findings @ -No old charts were reviewed Differential Diagnosis (chest pain, altered mental status, abdominal pain women, abdominal pain men, vaginal bleeding, musculoskeletal, weakness, fever, dyspnea, syncope, headache, dizziness, GI bleed, back pain, seizure, CVA, palpatations, mental health)? @ -Differential Syncope: Valvular disease, hypertrophic cardiomyopathy, pulmonary embolism, tamponade, tachycardia, bradycardia, MO, hypovolemia, hemorrhage, dissection, anemia, intracranial hemorrhage, seizure, hypoglycemia, carbon monoxide poisoning, this is not meant to be an all-inclusive list. EKG interpreted by me (3pts min.). @ -See above X-rays interpreted by me (1pt min.). @ -Chest x-ray is unremarkable CT interpreted by me (1pt min.). @ -Computed tomography scan of the brain is unremarkable U/S interpreted by me (1pt. min.). @ -None done What testing was considered but not performed or refused? (CT, X-rays, U/S, labs)? Why? @ -None What meds were considered but not given or refused? Why? @ -None Did you discuss the management of the patient with other professionals (professionals i.e. , PA, SET BUILDER, lab, RT, psych nurse, director of social work, airset molder, teacher, articulation officer, shelter case manager)? Give summary @ -No Was smoking cessation discussed for >3mins.? @ -No Was critical care preformed (if so, how long)? @ -No Were there social determinants of health that impacted care today? How? (Homelessness, low income, unemployed, alcoholism, drug addiction, transportation, low edu. Level, literacy, decrease access to med. care, snf, rehab)? @ -No Was there de-escalation of care discussed even if they declined (Discuss DNR or withdrawal of care, Hospice)? DNR status @ -No What co-morbidities impacted this encounter? (DM, HTN, Smoking, COPD, CAD, Cancer, CVA, ARF, Chemo, Hep., AIDS, mental health diagnosis, sleep apnea, morbid obesity)? @ -None Was patient admitted / discharged? Hospital course, mention meds given and route, prescriptions, significant lab abnormalities, going to OR and other pertinent info. @ -32-year-old male presents to the emergency department for syncopal episode. Vital signs upon arrival are within acceptable limits. EKG is unremarkable. Patient did hit his head complaining of nausea. Suspect that patient has some symptoms of concussion. Computed tomography scan of brain is unremarkable. Laboratory evaluation shows leukocytosis with a white blood cell count of 18.9. Does have some mild acidosis. Suspect some degree of dehydration. Patient was in this department. Disposition options were discussed. Patient is agreeable for discharge. Told to follow-up with his primary care doctor regarding his leukocytosis Undiagnosed new problem with uncertain prognosis? @ -No Drug Therapy requiring intensive monitoring for toxicity (Heparin, Nitro, Insulin, Cardizem)? @ -No Were any procedures done? @ -No Diagnosis/symptom? Acute, or Chronic, or Acute on Chronic? Uncomplicated (without systemic symptoms) or Complicated (systemic symptoms)? @ -Syncope Side effects of treatment? @ -No Exacerbation, Progression, or Severe Exacerbation? @ -No Poses a threat to life or bodily function? How? (Chest pain, USA, MO, pneumonia, PE, COPD, DKA, ARF, appy, cholecystitis, CVA, Diverticulitis, Homicidal, Suicidal, threat to staff... and all critical care pts) @ -yes - Lab Data Result diagrams: 09/24/22 18:26 09/24/22 18:26 Lab Results 09/24/22 09/24/22 Range/Units 18:26 18:26 WBC 18.9 H (3.8-10.6) k/uL RBC 5.52 (4.30-5.90) m/uL Hgb 16.9 (13.0-17.5) gm/dL Hct 49.4 (39.0-53.0) % MCV 89.5 (80.0-100.0) fL MCH 30.6 (25.0-35.0) pg MCHC 34.2 (31.0-37.0) g/dL RDW 12.3 (11.5-15.5) % Plt Count 289 (150-450) k/uL MPV 8.1 Neutrophils % 88 % Lymphocytes % 6 % Monocytes % 5 % Eosinophils % 1 % Basophils % 0 % Neutrophils # 16.6 H (1.3-7.7) k/uL Lymphocytes # 1.1 (1.0-4.8) k/uL Monocytes # 0.9 (0-1.0) k/uL Eosinophils # 0.1 (0-0.7) k/uL Basophils # 0.1 (0-0.2) k/uL Sodium 139 (137-145) mmol/L Potassium 4.3 (3.5-5.1) mmol/L Chloride 104 (98-107) mmol/L Carbon Dioxide 20 L (22-30) mmol/L Anion Gap 15 mmol/L BUN 17 (9-20) mg/dL Creatinine 1.00 (0.66-1.25) mg/dL Est GFR (CKD-EPI)AfAm >90 (>60 ml/min/1.73 sqM) Est GFR (CKD-EPI)NonAf >90 (>60 ml/min/1.73 sqM) Glucose 139 H (74-99) mg/dL Calcium 9.8 (8.4-10.2) mg/dL Disposition Clinical Impression: Syncope Disposition: HOME SELF-CARE Condition: Fair Instructions (If sedation given, give patient instructions): Syncope (ED) Is patient prescribed a controlled substance at d/c from ED?: No Referrals: Vinh Huffman DO [Primary Care Provider] - 1-2 days Time of Disposition: 19:15
[2022-09-24 18:44] LABS: African American GFR (CKD) >90 (>60 ml/min/1.73 sqM); Anion Gap 15 mmol/L; Blood Urea Nitrogen 17 mg/dL (9-20); Calcium 9.8 mg/dL (8.4-10.2); Carbon Dioxide 20 mmol/L (22-30); Chloride 104 mmol/L (98-107); Glucose 139 mg/dL (74-99); Non-African American GFR(CKD) >90 (>60 ml/min/1.73 sqM); Potassium 4.3 mmol/L (3.5-5.1); Sodium 139 mmol/L (137-145)
[2022-09-24 18:53] LABS: Basophils # (A) 0.1 k/uL (0-0.2); Basophils % (A) 0 %; Eosinophils # (A) 0.1 k/uL (0-0.7); Eosinophils % (A) 1 %; HCT 49.4 % (39.0-53.0); HGB 16.9 gm/dL (13.0-17.5); Lymphocytes # (A) 1.1 k/uL (1.0-4.8); Lymphocytes % (A) 6 %; MCH 30.6 pg (25.0-35.0); MCHC 34.2 g/dL (31.0-37.0); MCV 89.5 fL (80.0-100.0); Mean Platelet Volume 8.1; Monocytes # (A) 0.9 k/uL (0-1.0); Monocytes % (A) 5 %; Neutrophils # (A) 16.6 k/uL (1.3-7.7); Neutrophils % (A) 88 %; Platelet Count 289 k/uL (150-450); RBC 5.52 m/uL (4.30-5.90); RDW 12.3 % (11.5-15.5); WBC 18.9 k/uL (3.8-10.6)
--- NOTE | 2022-09-24 19:07 | CT ---
EXAMINATION TYPE: CT brain cspine wo con CT DLP: 1551.4 mGycm, Automated exposure control for dose reduction was used. DATE OF EXAM: 09/24/2022 6:42 PM COMPARISON: None. CLINICAL INDICATION:Male, 32 years old with history of fall, head injury; Syncopal episode with LOC. Head injury with lacerations to top of head. Hx of syncopal episodes. Unknown what pt hit head on. TECHNIQUE: Brain: Multiple axial CT images of the brain were obtained without IV contrast. Cspine: Axial CT images from the skull base to the inferior aspect of T2 we obtained without intraven ous contrast. Coronal and sagittal reformatted images were also reviewed. FINDINGS: Brain: Extra-axial spaces: No abnormal extra-axial fluid collections. Ventricular system: Within normal limits Cerebral parenchyma: No acute intraparenchymal hemorrhage or mass effect. The parikh-white junction is well differentiated. Cerebellum: Unremarkable. Mass effect: No evidence of midline shift. Intracranial vasculature: unremarkable Soft tissues: Normal. Calvarium/osseous structures: No depressed skull fracture. Paranasal sinuses and mastoid air cells: Clear. Visualized orbits: Orbital contents are intact. Cervical spine: Fracture: None. Osseous structures: Unremarkable Vertebral alignment: Within normal limits. Spinal canal/Neural Foramina: No evidence of significant spinal canal narrowing. No evidence for sign ificant neural foraminal stenosis. Neck soft tissues: Prevertebral soft tissues are within normal limits. Other: The airway is patent. The lung apices are clear. IMPRESSION: 1. No acute intracranial process. 2. No evidence of cervical spine fracture.
--- NOTE | 2022-09-24 19:32 | XR ---
EXAMINATION TYPE: XR chest 2V DATE OF EXAM: 09/24/2022 7:07 PM COMPARISON: None TECHNIQUE: XR chest 2V Frontal and lateral views of the chest. CLINICAL INDICATION:Male, 32 years old with history of thoracic back pain; FINDINGS: Lungs/Pleura: Low lung volumes are present. There is no evidence of pleural effusion, focal consolida tion, or pneumothorax. Pulmonary vascularity: Unremarkable. Heart/mediastinum: Cardiomediastinal silhouette is unremarkable. Musculoskeletal: No acute osseous pathology. IMPRESSION: Low lung volumes with a generalized hazy appearance which could represent atelectasis.
[2022-09-24 19:37] VITALS: TEMP 98.4
[2022-09-24 20:16] VITALS: BP 127/93; PULSE 89; RESP 16
== END 2022-09-24 20:16 | disposition home or self-care (01) ==
LOC: EC 17:07
DX: R55 Syncope and collapse (principal); E87.20 Acidosis, unspecified; D72.829 Elevated white blood cell count, unspecified; I10 Essential (primary) hypertension; E07.9 Disorder of thyroid, unspecified; F32.A Depression, unspecified; F41.9 Anxiety disorder, unspecified; F12.90 Cannabis use, unspecified, uncomplicated; Z79.890 Hormone replacement therapy; Z79.899 Other long term (current) drug therapy
CPT/HCPCS: 36415; 70450; 71046; 72125; 80048; 85025; 93005; 96360; 99285

== ENCOUNTER → 2022-09-28 | Outpatient (CLI) | payer BC ==
[2022-09-28 14:49] LABS: HCT 50.1 % (39.0-53.0); HGB 17.1 gm/dL (13.0-17.5); MCH 31.3 pg (25.0-35.0); MCHC 34.1 g/dL (31.0-37.0); MCV 91.8 fL (80.0-100.0); Mean Platelet Volume 7.9; Platelet Count 274 k/uL (150-450); RBC 5.46 m/uL (4.30-5.90); RDW 12.2 % (11.5-15.5)
--- NOTE | 2022-09-28 15:14 | XR ---
EXAMINATION TYPE: XR cervical spine comp, XR thoracic spine 2V DATE OF EXAM: 09/28/2022 2:42 PM INDICATION: Patient age:Male; 32 years old; Reason for study: BACK PAIN/NECK PAIN; PHH. COMPARISON: CT brain C-spine 09/24/2022 TECHNIQUE: The cervical spine was imaged in frontal, bilateral oblique, lateral, and odontoid project ions. The thoracic spine was imaged in frontal, lateral, and swimmer's projections. FINDINGS: No evidence of cervical spine fracture. There is mild anterior wedging of the midthoracic spine. Pedi cles appear intact. The intervertebral disk spaces are preserved. Soft tissues are within normal connell its. The odontoid appears intact. IMPRESSION: Mild anterior wedging of the midthoracic spine possibly relating to compression fractures. Further ev aluation with CT thoracic spine is recommended.
[2022-09-28 16:27] LABS: Eosinophils # (M) 0.42 k/uL (0-0.7); Lymphocytes # (M) 1.74 k/uL (1.0-4.8); Monocytes # (M) 0.66 k/uL (0-1.0); Neutrophils # (M) 3.18 k/uL (1.3-7.7); Neutrophils % (M) 53 %; Nucleated Red Blood Cells 0 /100 WBC (0-0); Total Cells Counted 100
[2022-09-28 20:51] LABS: ALT 69 U/L (10-49); AST 201 U/L (14-35); Albumin 4.6 d/dL (3.8-4.9); Albumin/Globulin Ratio 2.19 Ratio (1.60-3.17); Alkaline Phosphatase 77 U/L (41-126); Blood Urea Nitrogen 16.4 mg/dL (9.0-27.0); Calcium 10.5 mg/dL (8.7-10.3); Carbon Dioxide 28.2 mmol/L (21.6-31.8); Chloride 102 mmol/L (96-109); Globulin 2.1 d/dL (1.6-3.3); Glucose 97 mg/dL (70-110); Iron 131 UG/DL (65-175); Potassium 4.9 mmol/L (3.5-5.5); Sodium 141 mmol/L (135-145); Total Bilirubin 0.5 mg/dL (0.3-1.2); Total Protein 6.7 d/dL (6.2-8.2)
[2022-09-28 20:52] LABS: T4, Free (Free Thyroxine) 1.65 ng/dL (0.80-1.80)
[2022-09-28 21:16] LABS: Creatine Kinase 15261 U/L (35-257)
== END | disposition home or self-care (01) ==
LOC: LABWHC1 13:33
PROVIDERS: ATTEND Nurse Practitioner Family
DX: S09.90XA Unspecified injury of head, initial encounter (principal); D72.829 Elevated white blood cell count, unspecified; M54.6 Pain in thoracic spine; M54.2 Cervicalgia; R53.81 Other malaise; R55 Syncope and collapse; M54.9 Dorsalgia, unspecified; X58.XXXA Exposure to other specified factors, initial encounter
CPT/HCPCS: 36415; 72050; 72070; 80053; 82550; 82728; 83036; 83540; 84439; 84443; 84481; 85025

== ENCOUNTER 2022-09-29 16:14 | Inpatient (IN) | payer BC ==
[2022-09-29] MEDS ORDERED: SODIUM CHLORIDE 0.9% 1,000 ML IV ONE ×2 (16:57→20:16)
[2022-09-29 18:56] LABS: Appearance,Urine Clear (Clear); Bilirubin,Urine Negative (Negative); Blood,Urine Negative (Negative); Color,Urine Light Yellow; Glucose,Urine (UA) Negative (Negative); Ketones,Urine Negative (Negative); Leukocyte Esterase,Urine Negative (Negative); Nitrite,Urine Negative (Negative); Protein,Urine Negative (Negative); Specific Gravity,Urine 1.007 (1.001-1.035); Urobilinogen,Urine <2.0 mg/dL (<2.0)
--- NOTE | 2022-09-29 20:16 | ED ---
General Adult HPI - General Chief complaint: Recheck/Abnormal Lab/Rx Stated complaint: abn labs Time Seen by Provider: 09/29/22 16:40 Source: patient, RN notes reviewed, old records reviewed Mode of arrival: ambulatory Limitations: no limitations - History of Present Illness Initial comments: This is a 32-year-old male who is been sent in the emergency department because the primary medical care doctor found that the patient's CPK level was over 15,000. Patient 5 days ago had a syncopal episode doesn't remember prior to the episode and states after the episode was very weak but was not on the ground when the 15 minutes. Patient denies being on any statin drugs. Patient denies any history of muscular dystrophy. Patient denies any significant medical problems except for hypothyroidism and depression. Patient currently has only myalgias but no other complaints. Patient denies any fever chills. - Related Data Home Medications Medication Instructions Recorded Confirmed Levothyroxine Sodium [Synthroid] 200 mcg PO DAILY 04/13/20 09/29/22 Citalopram Hydrobromide [CeleXA] 20 mg PO DAILY 07/27/21 09/29/22 busPIRone HCL [Buspar] 7.5 mg PO BID 07/27/21 09/29/22 Metoprolol Succinate [Metoprolol 25 mg PO DAILY 09/24/22 09/29/22 Succinate ER] tiZANidine HCL 4 mg PO Q6H PRN 09/29/22 09/29/22 Allergies Allergy/AdvReac Type Severity Reaction Status Date / Time No Known Allergies Allergy Verified 09/29/22 17:36 Review of Systems ROS Statement: Those systems with pertinent positive or pertinent negative responses have been documented in the HPI. ROS Other: All systems not noted in ROS Statement are negative. Past Medical History Past Medical History: GERD/Reflux, Hypertension, Thyroid Disorder Additional Past Medical History / Comment(s): Migraines and cluster headaches. History of Any Multi-Drug Resistant Organisms: None Reported Past Surgical History: Orthopedic Surgery, Tonsillectomy Additional Past Surgical History / Comment(s): LEFT KNEE ARTHROSCOPY, TENDON LEFT WRIST, SINUS SX Past Anesthesia/Blood Transfusion Reactions: No Reported Reaction Past Psychological History: Anxiety, Depression Smoking Status: Never smoker Past Alcohol Use History: Occasional Past Drug Use History: Marijuana - Past Family History Mother Family Medical History: No Reported History General Exam - General Exam Comments Initial Comments: GENERAL: Patient is well-developed and well-nourished. Patient is nontoxic and well- hydrated and is in mild distress. ENT: Neck is soft and supple. No significant lymphadenopathy is noted. Oropharynx is clear. Moist mucous membranes. Neck has full range of motion without eliciting any pain. EYES: The sclera were anicteric and conjunctiva were pink and moist. Extraocular movements were intact and pupils were equal round and reactive to light. Eyelids were unremarkable. PULMONARY: Unlabored respirations. Good breath sounds bilaterally. No audible rales rhonchi or wheezing was noted. CARDIOVASCULAR: There is a regular rate and rhythm without any murmurs gallops or rubs. ABDOMEN: Soft and nontender with normal bowel sounds. SKIN: Skin is clear with no lesions or rashes and otherwise unremarkable. NEUROLOGIC: Patient is alert and oriented x3. Cranial nerves II through XII are grossly intact. Motor and sensory are also intact. Normal speech, volume and content. Symmetrical smile. MUSCULOSKELETAL: Normal extremities with adequate strength and full range of motion. No lower extremity swelling or edema. Patient's muscles are tender no matter where I touch in any of the extremities LYMPHATICS: No significant lymphadenopathy is noted PSYCHIATRIC: Normal psychiatric evaluation. Limitations: no limitations Course Vital Signs 09/29/22 16:22 Temperature 97.8 F Pulse Rate 108 H Respiratory 20 Rate Blood Pressure 122/87 O2 Sat by Pulse 97 Oximetry Medical Decision Making - Medical Decision Making EKG was interpreted by myself shows sinus rhythm at 94 bpm TN interval is on a 47 QRS is under 2 QT interval 348 QTC is 400. Patient's EKG shows no ST segment elevation or depression. Was pt. sent in by a medical professional or institution (, PA, CONTENT EDITOR, urgent care, hospital, or senior living...) When possible be specific @ -Primary medical doctor sent him into the emergency department. Did you speak to anyone other than the patient for history (EMS, parent, family, police, friend...)? What history was obtained from this source @ -No Did you review nursing and triage notes (agree or disagree)? Why? @ -I reviewed and agree with nursing and triage notes Were old charts reviewed (outside hosp., previous admission, EMS record, old EKG, old radiological studies, urgent care reports/EKG's, senior living records)? Report findings @ -The prior lab work and prior charting on this patient Differential Diagnosis (chest pain, altered mental status, abdominal pain women, abdominal pain men, vaginal bleeding, weakness, fever, dyspnea, syncope, headache, dizziness, GI bleed, back pain, seizure, CVA, palpatations, mental health, musculoskeletal)? @ -Rhabdomyolysis, medication reaction, viral syndrome, muscular dystrophy, EKG interpreted by me (3pts min.). @ -As above X-rays interpreted by me (1pt min.). @ -None done CT interpreted by me (1pt min.). @ -None done U/S interpreted by me (1pt. min.). @ -None done What testing was considered but not performed or refused? (CT, X-rays, U/S, labs)? Why? @ -None What meds were considered but not given or refused? Why? @ -None Did you discuss the management of the patient with other professionals (professionals i.e. , PA, CONTENT EDITOR, lab, RT, psych nurse, vp digital marketing social media and crm, bristle machine operator, teacher, chief revenue officer, manager of case)? Give summary @ -[facility] the patient admitted the patient I consult nephrology. I spoke with Dr. Yoo and he was in agreement with admitting the patient Was smoking cessation discussed for >3mins.? @ -No Was critical care preformed (if so, how long)? @ -No Were there social determinants of health that impacted care today? How? (Homelessness, low income, unemployed, alcoholism, drug addiction, barraza sportation, low edu. Level, literacy, decrease access to med. care, long term, rehab)? @ -No Was there de-escalation of care discussed even if they declined (Discuss DNR or withdrawal of care, Hospice)? DNR status @ -No What co-morbidities impacted this encounter? (DM, HTN, Smoking, COPD, CAD, Cancer, CVA, ARF, Chemo, Hep., AIDS, mental health diagnosis, sleep apnea, morbid obesity)? @ -None Was patient admitted / discharged? Hospital course, mention meds given and route, prescriptions, significant lab abnormalities, going to OR and other pertinent info. @ -I reviewed prior lab work and radiological studies radiological studies indicated the patient had T7-T8 endplate fracture as well as elevated creatinine kinase [facility] and [facility] Yoo the senior account manager will be consulted Undiagnosed new problem with uncertain prognosis? @ -No Drug Therapy requiring intensive monitoring for toxicity (Heparin, Nitro, Insulin, Cardizem)? @ -No Were any procedures done? @ -No Diagnosis/symptom? @ -Elevated creatinine kinase Acute, or Chronic, or Acute on Chronic? @ -Acute Uncomplicated (without systemic symptoms) or Complicated (systemic symptoms)? @ -Complicated Side effects of treatment? @ -No Exacerbation, Progression, or Severe Exacerbation? @ -No Poses a threat to life or bodily function? How? (Chest pain, [place], [place], pneumonia, PE, COPD, DKA, ARF, appy, cholecystitis, CVA, Diverticulitis, Homicidal, Suicidal, threat to staff... and all critical care pts) @ -No Diagnosis/symptom? @ -Endplate fracture T7-T8 Acute, or Chronic, or Acute on Chronic? @ -Acute Uncomplicated (without systemic symptoms) or Complicated (systemic symptoms)? @ -Uncomplicated Side effects of treatment? @ -none Exacerbation, Progression, or Severe Exacerbation] @ -no Poses a threat to life or bodily function? @ -no - Lab Data Lab Results 09/29/22 09/29/22 09/29/22 Range/Units 17:06 17:06 18:45 ESR 6 (0-15) mm/hr C-Reactive Protein 0.9 (<1.0) mg/dL Urine Color Light Yellow Urine Appearance Clear (Clear) Urine pH 6.0 (5.0-8.0) Ur Specific [place] 1.007 (1.001-1.035) Urine Protein Negative (Negative) Urine Glucose (UA) Negative (Negative) Urine Ketones Negative (Negative) Urine Blood Negative (Negative) Urine Nitrite Negative (Negative) Urine Bilirubin Negative (Negative) Urine Urobilinogen <2.0 (<2.0) mg/dL Ur Leukocyte Esterase Negative (Negative) Disposition Clinical Impression: Elevated creatine kinase, Myalgia, Wedge compression fracture of T7-T8 vertebra, initial encounter for closed fracture Disposition: ADMITTED IP TO THIS [facility] Referrals: Vihn Huffman DO [Primary Care Provider] - 1-2 days Time of Disposition: 20:15
[2022-09-29] MEDS: IBUPROFEN 400 MG TAB PO PRN (22:56)
[2022-09-29] MEDS: busPIRone HCl 5 MG TAB PO SCH (22:57)
[2022-09-30] MEDS ORDERED: SODIUM CHLORIDE 0.9% 1,000 ML IV SCH (03:00)
[2022-09-30] MEDS ORDERED: LEVOTHYROXINE 100 MCG TAB PO SCH (06:30)
[2022-09-30 07:15] LABS: Basophils % (A) 1 %; Eosinophils # (A) 0.3 k/uL (0-0.7); Eosinophils % (A) 6 %; HCT 44.9 % (39.0-53.0); HGB 15.2 gm/dL (13.0-17.5); Lymphocytes # (A) 1.6 k/uL (1.0-4.8); Lymphocytes % (A) 32 %; MCH 31.4 pg (25.0-35.0); MCHC 33.8 g/dL (31.0-37.0); Mean Platelet Volume 7.5; Monocytes # (A) 0.3 k/uL (0-1.0); Monocytes % (A) 6 %; Neutrophils # (A) 2.7 k/uL (1.3-7.7); Neutrophils % (A) 54 %; Platelet Count 221 k/uL (150-450); RBC 4.83 m/uL (4.30-5.90); RDW 11.8 % (11.5-15.5)
[2022-09-30 07:17] LABS: African American GFR (CKD) >90 (>60 ml/min/1.73 sqM); Anion Gap 3 mmol/L; Blood Urea Nitrogen 15 mg/dL (9-20); Calcium 8.3 mg/dL (8.4-10.2); Carbon Dioxide 29 mmol/L (22-30); Chloride 106 mmol/L (98-107); Glucose 87 mg/dL (74-99); Magnesium 1.9 mg/dL (1.6-2.3); Non-African American GFR(CKD) >90 (>60 ml/min/1.73 sqM); Potassium 4.6 mmol/L (3.5-5.1); Sodium 138 mmol/L (137-145)
[2022-09-30] MEDS: IBUPROFEN 400 MG TAB PO PRN (07:44)
[2022-09-30] MEDS: busPIRone HCl 5 MG TAB PO SCH (07:44)
[2022-09-30] MEDS ORDERED: FAMOTIDINE 20 MG TAB PO SCH (09:00)
[2022-09-30] MEDS ORDERED: CITALOPRAM HYDROBROMIDE 20 MG TAB PO SCH (09:00)
[2022-09-30] MEDS ORDERED: METOPROLOL SUCCINATE (ER) 25 MG TAB.ER.24H PO SCH (09:00)
--- NOTE | 2022-09-30 11:38 | P.NPCON ---
History of Present Illness - History of Present Illness Patient is a 32-year-old male with past medical history of hypothyroidism tuan gnosed at about 22 years of age. Patient presented to the hospital with complaints of significant soreness all [place] [id number]. Patient experienced an episode of syncope last week on 09/24/2022 while he was cutting grass. Patient does not remember it being extremely warm that day. He remembers feeling lightheaded and then woke up on the floor. He had bruised his right forearm. Patient was evaluated in the ER on 09/24/2022 with no evidence of fractures. He had a head computed tomography scan as well which was negative. CK was not done that day. Systolic blood pressure was around 10 5 mmHg on 09/24/2022. TSH 3.5 on 09/28/2022. Patient denies use of any statins. No history of recent vigorous workouts in the gym. Patient admits to his usual fluid intake which has not changed recently. Serum creatinine at 0.97 mg/dL today and CK is 5844. Review of Systems As per HPI Past Medical History Past Medical History: GERD/Reflux, Hypertension, Thyroid Disorder Additional Past Medical History / Comment(s): High heart rate. History of Any Multi-Drug Resistant Organisms: None Reported Past Surgical History: Orthopedic Surgery, Tonsillectomy Additional Past Surgical History / Comment(s): LEFT KNEE ARTHROSCOPY, TENDON LEFT WRIST, SINUS SX, 2 right knee surgeries Past Anesthesia/Blood Transfusion Reactions: No Reported Reaction Past Psychological History: Anxiety, Depression Smoking Status: Never smoker Past Alcohol Use History: Occasional Past Drug Use History: Marijuana Additional Drug Use History / Comment(s): Reports occasional marijuana use - Past Family History Mother Family Medical History: No Reported History Medications and Allergies Home Medications Medication Instructions Recorded Confirmed Type Levothyroxine Sodium [Synthroid] 200 mcg PO DAILY 04/13/20 09/29/22 History Citalopram Hydrobromide [CeleXA] 20 mg PO DAILY 07/27/21 09/29/22 History busPIRone HCL [Buspar] 7.5 mg PO BID 07/27/21 09/29/22 History Metoprolol Succinate [Metoprolol 25 mg PO DAILY 09/24/22 09/29/22 History Succinate ER] tiZANidine HCL 4 mg PO Q6H PRN 09/29/22 09/29/22 History Allergies Allergy/AdvReac Type Severity Reaction Status Date / Time No Known Allergies Allergy Verified 09/29/22 17:36 Physical Exam Vitals: Vital Signs Temp Pulse Pulse Resp BP BP Pulse Ox 09/30/22 07:19 98.1 F 77 17 109/73 93 L 09/30/22 00:22 97.9 F 80 18 108/72 98 09/29/22 22:57 99.0 F 74 16 119/76 96 09/29/22 20:53 98.5 F 102 H 18 131/92 99 09/29/22 16:22 97.8 F 108 H 20 122/87 97 Intake and Output 09/29/22 09/30/22 09/30/22 22:59 06:59 14:59 Output Total 0 Balance 0 Output: Stool 0 Other: Voiding Method Toilet # Voids 1 Weight 95.254 kg Patient is comfortable awake alert oriented 3 not in any acute distress Examination of the heart S1 and S2 Examination of the lungs bilateral breath sounds are heard Abdomen is soft nontender Examination of lower extremities shows no edema Mild bruising noted in the right forearm [employer]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 Rhabdomyolysis most likely associated with working outside and history of fall. It is unclear as to how long patient was on the ground. The CK levels are currently decreasing with improvement in symptoms as well. TSH was not elevated. Continue with IV fluids. 2. History of hypothyroidism diagnosed at quite an early age around 22 years currently maintained on supplementation 3. Hypovolemia Plan: Continue with IV fluids Patient is advised to avoid excessive use of NSAIDs Avoid vigorous activity for the next week or so. Repeat CK as outpatient post discharge.
--- NOTE | 2022-09-30 12:04 | P.HPIM ---
History of Present Illness 32-year-old male with symptoms from PCPs office because of elevated creatinine kinase of around 15,000 and concern of seizure. Patient had a syncopal episode about a week dehydration due to elevated hematocrit and elevated creatinine. He is a syncopal episode event happen while he was cutting grass and outside and he was believed to be dehydrated at the time was given IV fluids of squarely discharged. Patient the had a fall at that time patient's creatinine is within normal limits and his creatinine kinase was elevated to 15,000 which has come down to 5000 now patient is on IV fluids. Patient lost consciousness about 9 da ys ago which lasted for around 15 minutes fever patient was not evidenced by anyone for tonic-clonic activity. Patient said he did bite his tongue. Patient denied any seizure history CT of the head on ER visit during that time was negative for any significant abnormality. Patient does follow with cardiology patient had a syncope about 6 months ago at that time patient was extensive evaluated had a normal echocardiogram and patient was on Holter monitor as well patient does have history of hypothyroidism. Is mildly elevated to 4.73 will obtain T4. He is complaining of some body aches REVIEW OF SYSTEMS: CONSTITUTIONAL: No fever, no malaise, no fatigue. HEENT: No recent visual problems or hearing problems. Denied any sore throat. CARDIOVASCULAR: No chest pain, orthopnea, PND, no palpitations, no syncope. PULMONARY: No shortness of breath, no cough, no hemoptysis. GASTROINTESTINAL: No diarrhea, no nausea, no vomiting, no abdominal pain. NEUROLOGICAL: No headaches, no weakness, no numbness. HEMATOLOGICAL: Denies any bleeding or petechiae. GENITOURINARY: Denies any burning micturition, frequency, or urgency. MUSCULOSKELETAL/RHEUMATOLOGICAL: Denies any joint pain, swelling, or any muscle pain. ENDOCRINE: Denies any polyuria or polydipsia. The rest of the 14-point review of systems is negative. PHYSICAL EXAMINATION: GENERAL: The patient is alert and oriented x3, not in any acute distress. Well developed, well nourished. HEENT: Pupils are round and equally reacting to light. EOMI. No scleral icterus. No conjunctival pallor. Normocephalic, atraumatic. No pharyngeal erythema. No thyromegaly. CARDIOVASCULAR: S1 and S2 present. No murmurs, rubs, or gallops. PULMONARY: Chest is clear to auscultation, no wheezing or crackles. ABDOMEN: Soft, nontender, nondistended, normoactive bowel sounds. No palpable organomegaly. MUSCULOSKELETAL: No joint swelling or deformity. EXTREMITIES: No cyanosis, clubbing, or pedal edema. NEUROLOGICAL: Gross neurological examination did not reveal any focal deficits. SKIN: No rashes. Assessment and plan -Elevated CK, rhabdomyolysis patient creatinine kinase levels improved patient was hydrated. Patient will be discharged today. -Syncope and possible syncope uses seizure will obtain EEG do not believe patient has a primary seizure disorder, if patient has any seizure episodes down the line will need further workup with an MRI and follow up with neurology at that time. Syncope 9 days ago was secondary to dehydration. Follow-up with his legal collector as an outpatient next and-hypothyroidism patient TSH is slightly elevated, repeat the TSH as an outpatient and I'm not increasing his levothyroxine dose as he is already in a very high-dose of levothyroxine. -Unknown heart rhythm are tachycardia history for which patient to metoprolol which will be continued Depression -GERD Patient will be discharged later today after EEG results Past Medical History Past Medical History: GERD/Reflux, Hypertension, Thyroid Disorder Additional Past Medical History / Comment(s): High heart rate. History of Any Multi-Drug Resistant Organisms: None Reported Past Surgical History: Orthopedic Surgery, Tonsillectomy Additional Past Surgical History / Comment(s): LEFT KNEE ARTHROSCOPY, TENDON LEFT WRIST, SINUS SX, 2 right knee surgeries Past Anesthesia/Blood Transfusion Reactions: No Reported Reaction Past Psychological History: Anxiety, Depression Smoking Status: Never smoker Past Alcohol Use History: Occasional Past Drug Use History: Marijuana Additional Drug Use History / Comment(s): Reports occasional marijuana use - Past Family History Mother Family Medical History: No Reported History Medications and Allergies Home Medications Medication Instructions Recorded Confirmed Type Levothyroxine Sodium [Synthroid] 200 mcg PO DAILY 04/13/20 09/29/22 History Citalopram Hydrobromide [CeleXA] 20 mg PO DAILY 07/27/21 09/29/22 History busPIRone HCL [Buspar] 7.5 mg PO BID 07/27/21 09/29/22 History Metoprolol Succinate [Metoprolol 25 mg PO DAILY 09/24/22 09/29/22 History Succinate ER] tiZANidine HCL 4 mg PO Q6H PRN 09/29/22 09/29/22 History Allergies Allergy/AdvReac Type Severity Reaction Status Date / Time No Known Allergies Allergy Verified 09/29/22 17:36 Physical Exam Vitals: Vital Signs Temp Pulse Pulse Resp BP BP Pulse Ox 09/30/22 07:19 98.1 F 77 17 109/73 93 L 09/30/22 00:22 97.9 F 80 18 108/72 98 09/29/22 22:57 99.0 F 74 16 119/76 96 09/29/22 20:53 98.5 F 102 H 18 131/92 99 09/29/22 16:22 97.8 F 108 H 20 122/87 97 Intake and Output 09/29/22 09/30/22 09/30/22 22:59 06:59 14:59 Output Total 0 Balance 0 Output: Stool 0 Other: Voiding Method Toilet # Voids 1 Weight 95.254 kg Results CBC & Chem 7: 09/30/22 06:33 09/30/22 06:33 Labs: Abnormal Lab Results - Last 24 Hours (Table) 09/30/22 09/30/22 09/30/22 Range/Units 06:33 06:33 06:33 Calcium 8.3 L (8.4-10.2) mg/dL Creatine Kinase 5844 H* (55-170) U/L TSH 4.730 H (0.465-4.680) mIU/L Thrombosis Risk Factor Assmnt - Choose All That Apply Any of the Below Risk Factors Present?: Yes Each Factor Represents 1 point: Obesity (BMI >25) Other Risk Factors: No Other congenital or acquired thrombophilia - If yes, enter type in comment: No Thrombosis Risk Factor Assessment Total Risk Factor Score: 1 Thrombosis Risk Factor Assessment Level: Low Risk
[2022-09-30 14:04] VITALS: BP 112/68; PULSE 78; RESP 16; TEMP 99.4
--- NOTE | 2022-09-30 21:46 | EEG ---
ELECTROENCEPHALOGRAM REPORT PREAMBLE: This is a 32-year-old male with possible seizure. The patient on Tuesday was at home cutting the lawn and had a syncopal episode. He does not remember how long he was out for. He did bite his tongue. CURRENT MEDICATIONS: 1. BuSpar. 2. Celexa. 3. Pepcid. 4. Motrin. 5. Synthroid. 6. Toprol. EEG FINDINGS: This is a 21-channel digital EEG recorded with video component, utilizing 10/20 international system with referential and bipolar montages. Background consists of well developed, well regulated moderate voltage activity in 10 hertz alpha. Background is posterior dominant and reactive to eye opening and closing. Photic driving response was seen with some flash frequencies. Drowsiness was seen with presence of bilaterally symmetric theta frequency rhythm. Brief stage 2 sleep was attained with presence of sleep spindles. No focal or generalized epileptiform activity was seen. EKG channel showed no obvious arrhythmia. IMPRESSION: This is a normal EEG during wakefulness, drowsiness, and brief stage 2 sleep. No focal, lateralized, or epileptiform activity was seen. MMODL / IJN: [id number] /
--- NOTE | 2022-10-01 09:43 | CDI ---
Documentation Clarification Form Date: 10/01/22 From: Tata Osman Admit Date: 09/29/2022 08:16:00 PM Patient Name: Brian Shannon Visit Number: [id number] Discharge Date: 09/30/2022 02:20:00 PM ATTENTION: The Clinical Documentation Specialists (CDI) and [facility] Coding Staff appreciate your assistance in clarifying documentation. Please respond to the clarification below the line at the bottom and electronically sign. The CDI & [facility] Coding staff will review the response and follow-up if needed. Please note: Queries are made part of the Legal Health Record. If you have any questions, please contact the author of this message via ITS. Dr. Nicol Rivers, Rhabdomyolysis is documented 09/30, H & P. Additional clarification regarding the type of rhabdomyolysis is requested. History/Risk Factors: HTN, Hypothyroidism, GERD, and Hypovolemia Clinical Indicators: Tender muscles, hypovolemia Treatment: EEG, Continue with IV fluids. Patient is advied to avoid excessiveuse of NSAIDs Please clarify the type of rhabdomyolysis, if known: [ x] Traumatic rhabdomyolysis due to fall [ ] Traumatic rhabdomyolysis due to prolonged immobility [ ] Non traumatic rhabdomyolysis due to medication (please specify) [ ] Non traumatic rhabdomyolysis due to infection (please specify) [ ] Other, please specify [ ] Unable to Determine MTDD
== END 2022-09-30 14:20 | disposition home or self-care (01) | DRG 566 ==
LOC: EC 16:14 → 4SSUR 20:16
PROVIDERS: ADMIT Hospitalist; ATTEND Hospitalist
PROC: 4A10X4Z Monitoring of Central Nervous Electrical Activity, External Approach (ICD-10-PCS; principal; 2022-09-30)
DX: T79.6XXA Traumatic ischemia of muscle, initial encounter (principal); E03.9 Hypothyroidism, unspecified; I10 Essential (primary) hypertension; F32.A Depression, unspecified; E86.0 Dehydration; K21.9 Gastro-esophageal reflux disease without esophagitis; F41.9 Anxiety disorder, unspecified; E86.1 Hypovolemia; Z79.890 Hormone replacement therapy; Z79.899 Other long term (current) drug therapy; Z91.81 History of falling
CPT/HCPCS: 36415; 80048; 81003; 82550; 83735; 84439; 84443; 85025; 85652; 86140; 93005; 95816; 96360; 96361; 99285

== ENCOUNTER → 2022-09-29 | Outpatient (CLI) | payer BC ==
--- NOTE | 2022-09-29 16:28 | CT ---
EXAMINATION TYPE: CT thoracic spine wo con DATE OF EXAM: 09/29/2022 COMPARISON: Plain film 09/28/2022 HISTORY: MID BACK PAIN FROM FALL CT DLP: 1225.7 mGycm Automated exposure control for dose reduction was used. FINDINGS: Mild superior endplate loss of height T7 and T8 with minimal paraspinal hematoma compatible with acut e compression fractures. No evidence of bony retropulsion. No additional fractures seen. Middle and p osterior column are intact. Disc spaces are well preserved. No evidence for cord compression or canal stenosis. IMPRESSION: mild superior endplate compression fractures of T7 and T8. NO EVIDENCE OF INSTABILITY.
== END | disposition home or self-care (01) ==
LOC: RADCTMAIN 15:24
PROVIDERS: ATTEND Family Medicine
DX: S22.060A Wedge compression fracture of T7-T8 vertebra, initial encounter for closed fracture (principal)
CPT/HCPCS: 72128

== ENCOUNTER → 2022-09-29 | Outpatient (CLI) | payer BC ==
[2022-09-29 11:59] LABS: Basophils % (A) 1 %; Eosinophils # (A) 0.3 k/uL (0-0.7); Eosinophils % (A) 5 %; HCT 52.1 % (39.0-53.0); HGB 17.4 gm/dL (13.0-17.5); Lymphocytes # (A) 1.3 k/uL (1.0-4.8); Lymphocytes % (A) 22 %; MCH 30.5 pg (25.0-35.0); MCHC 33.4 g/dL (31.0-37.0); MCV 91.2 fL (80.0-100.0); Mean Platelet Volume 7.8; Monocytes # (A) 0.4 k/uL (0-1.0); Monocytes % (A) 7 %; Neutrophils # (A) 3.9 k/uL (1.3-7.7); Neutrophils % (A) 64 %; Platelet Count 270 k/uL (150-450); RBC 5.71 m/uL (4.30-5.90); RDW 12.2 % (11.5-15.5)
[2022-09-29 12:16] LABS: ALT 73 U/L (4-49); AST 200 U/L (17-59); African American GFR (CKD) >90 (>60 ml/min/1.73 sqM); Albumin 4.6 g/dL (3.5-5.0); Albumin/Globulin Ratio 1.6; Alkaline Phosphatase 70 U/L (38-126); Anion Gap 7 mmol/L; Bilirubin,Unconjugated 0.6 mg/dL (0.0-1.1); Blood Urea Nitrogen 18 mg/dL (9-20); C Reactive Protein 0.9 mg/dL (<1.0); Calcium 10.1 mg/dL (8.4-10.2); Carbon Dioxide 32 mmol/L (22-30); Chloride 101 mmol/L (98-107); Globulin 2.8 g/dL; Glucose 97 mg/dL (74-99); Non-African American GFR(CKD) >90 (>60 ml/min/1.73 sqM); Phosphorus 3.7 mg/dL (2.5-4.5); Sodium 140 mmol/L (137-145); Total Bilirubin 0.7 mg/dL (0.2-1.3); Total Protein 7.4 g/dL (6.3-8.2)
[2022-09-29 12:41] LABS: Troponin I <0.012 ng/mL (0.000-0.034)
[2022-09-29 13:06] LABS: Erythrocyte Sedimentation Rate 7 mm/hr (0-15)
[2022-09-29 13:49] LABS: Creatine Kinase 14044 U/L (55-170)
[2022-09-29 15:09] LABS: Creatine Kinase MB 0.7 ng/mL (0.0-2.4)
== END | disposition home or self-care (01) ==
LOC: LABWHC1 10:33
PROVIDERS: ATTEND Nurse Practitioner Family
DX: E83.52 Hypercalcemia (principal); D72.829 Elevated white blood cell count, unspecified; R74.8 Abnormal levels of other serum enzymes
CPT/HCPCS: 36415; 80069; 80076; 82550; 82553; 83970; 84484; 85025; 85652; 86140

== ENCOUNTER → 2022-10-23 | Outpatient (CLI) | payer BC ==
[2022-10-23 23:16] LABS: Basophils # (A) 0.05 X 10*3/uL (0.00-0.10); Basophils % (A) 0.9 %; Eosinophils # (A) 0.45 X 10*3/uL (0.04-0.35); Eosinophils % (A) 7.9 %; HCT 45.1 % (39.6-50.0); HGB 15.3 d/dL (12.0-15.0); Lymphocytes # (A) 1.77 X 10*3/uL (0.90-5.00); Lymphocytes % (A) 30.9 %; MCH 30.2 pg (27.0-32.0); MCHC 33.9 d/dL (32.0-37.0); MCV 89.1 FL (80.0-97.0); Mean Platelet Volume 10.2 FL (9.5-12.2); Monocytes # (A) 0.36 X 10*3/uL (0.20-1.00); Monocytes % (A) 6.3 %; NRBC Per 100 WBC 0 X 10*3/uL (0.00-0.01); Neutrophils # (A) 3.09 X 10*3/uL (1.80-7.70); Neutrophils % (A) 53.8 %; Platelet Count 246 X 10*3/uL (140-440); RBC 5.06 X 10*6/uL (4.40-5.60); RDW 11.7 % (11.5-14.5); WBC 5.73 X 10*3/uL (4.50-10.00)
[2022-10-23 23:56] LABS: % Iron Saturation 32.28 (15.00-50.00); ALT 33 U/L (10-49); AST 30 U/L (14-35); Albumin 4.3 d/dL (3.8-4.9); Albumin/Globulin Ratio 2.26 Ratio (1.60-3.17); Alkaline Phosphatase 86 U/L (41-126); BUN/Creat Ratio 12.33 Ratio (12.00-20.00); Blood Urea Nitrogen 11.1 mg/dL (9.0-27.0); C Reactive Protein <0.30 mg/dL (0.00-0.80); Calcium 10.2 mg/dL (8.7-10.3); Carbon Dioxide 25.1 mmol/L (21.6-31.8); Chloride 104 mmol/L (96-109); Creatine Kinase 157 U/L (35-257); Ferritin 92.6 ng/mL (22.0-322.0); Globulin 1.9 d/dL (1.6-3.3); Glucose 92 mg/dL (70-110); Iron 112 UG/DL (65-175); Potassium 4.6 mmol/L (3.5-5.5); Sodium 141 mmol/L (135-145); Total Bilirubin 0.4 mg/dL (0.3-1.2); Total Iron Binding Capacity 347 UG/DL (228-460); Total Protein 6.2 d/dL (6.2-8.2)
[2022-10-24 08:39] LABS: Erythrocyte Sedimentation Rate <1 mm/Hr (0-15)
[2022-10-25 14:42] LABS: APTT 35 Sec(s) (<43); Dilute Russell Viper Venom 31 Sec(s) (<44)
[2022-10-26 11:09] LABS: Protein C (Activity) 115 % (71-138)
== END | disposition home or self-care (01) ==
LOC: LABWHC1 10:49
PROVIDERS: ATTEND Family Medicine
DX: R74.8 Abnormal levels of other serum enzymes (principal); R58 Hemorrhage, not elsewhere classified
CPT/HCPCS: 36415; 80053; 81241; 82550; 82728; 83540; 83550; 85025; 85303; 85306; 85613; 85652; 85730; 86140

== ENCOUNTER → 2022-10-29 | Outpatient (CLI) | payer BC ==
--- NOTE | 2022-10-29 17:47 | CA ---
Transthoracic Echo Report Name: Brian Shannon Age: 32 Gender: M : 1990 Exam Date: 10/29/2022 15:02 Exam Location: [place] Echo Ht (in): 72 Wt (lb): 210 Ordering Physician: Vinh Huffman DO Attending/Referring Phys: Yina Scott [facility] Web Site Developer Ines Michaels [facility] Procedure CPT: Indications: R55 SYNCOPE AND COLLAPSE Cardiac Hx: Technical Quality: Fair Contrast 1: Total Dose (mL): Contrast 2: Total Dose (mL): MEASUREMENTS (Male / Female) Normal Values 2D ECHO LV Diastolic Diameter PLAX 5.1 cm 4.2 - 5.9 / 3.9 - 5.3 cm LV Systolic Diameter PLAX 3.5 cm IVS Diastolic Thickness 1.0 cm 0.6 - 1.0 / 0.6 - 0.9 cm LVPW Diastolic Thickness 0.8 cm 0.6 - 1.0 / 0.6 - 0.9 cm LV Relative Wall Thickness 0.4 LVOT Diameter 2.0 cm Aortic Root Diameter 3.8 cm Ascending Aorta Diameter 3.1 cm M-MODE Aortic Root Diameter MM 3.4 cm LA Systolic Diameter MM 3.5 cm LA Ao Ratio MM 1.0 AV Cusp Separation MM 2.5 cm DOPPLER AV Peak Velocity 95.6 cm/s AV Peak Gradient 3.7 mmHg AV Mean Velocity 81.5 cm/s AV Mean Gradient 2.7 mmHg AV Velocity Time Integral 18.9 cm LVOT Peak Velocity 85.1 cm/s LVOT Peak Gradient 2.9 mmHg LVOT Velocity Time Integral 16.3 cm LVOT Stroke Volume 50.8 cm??? LVOT Stroke Volume Index 23.4 ml/m??? LVOT Cardiac Index 1878.4 cm???/min???m??? AV Area Cont Eq vti 2.7 cm??? AV Area Cont Eq pk 2.8 cm??? Mitral E Point Velocity 58.5 cm/s Mitral A Point Velocity 57.0 cm/s Mitral E to A Ratio 1.0 MV Deceleration Time 175.7 ms LV E' Lateral Velocity 11.1 cm/s Mitral E to LV E' Lateral Ratio 5.3 LV E' Septal Velocity 7.5 cm/s Mitral E to LV E' Septal Ratio 7.8 TR Peak Velocity 220.9 cm/s TR Peak Gradient 19.5 mmHg Right Atrial Pressure 8.0 mmHg Pulmonary Artery Systolic Pressu 27.5 mmHg Right Ventricular Systolic Press 27.5 mmHg FINDINGS Left Ventricle Normal left ventricular, wall thickness, systolic function with no obvious regional wall motion abnormalities. Left ventricular cavity size at the upper limits of normal. The ejection fraction is visually estimated at 50-55%. Right Ventricle Moderate right ventricular dilatation. Right Atrium Moderate right atrial dilatation. Negative agitated saline bubble study for right to left shunt. Left Atrium The left atrium is normal in size. Mitral Valve Structurally normal mitral valve without significant stenosis or prolapse. There is no mitral regurgitation. Aortic Valve Structurally normal aortic valve without significant sclerosis or stenosis. There is no aortic regurgitation. Tricuspid Valve Structurally normal tricuspid valve without significant stenosis. Mild tricuspid regurgitation. Pulmonic Valve Structurally normal pulmonic valve without significant stenosis. Trace pulmonic regurgitation. Pericardium Normal pericardium without effusion. Aorta Mild aortic dilatation at the level of the sinuses of valsalva (root). CONCLUSIONS Normal LV function Dilated right atrium Negative bubble study Consider transesophageal echo to definitively rule out cardiac source for thromboembolic CVA Mildly dilated aortic root Previewed by: Juan C Doherty MD Dr. Suresh Tumma MD (Electronically Signed) Final Date: 29 October 2022 17:46
== END | disposition home or self-care (01) ==
LOC: RADECHMAIN 14:55
PROVIDERS: ATTEND Family Medicine
DX: I36.1 Nonrheumatic tricuspid (valve) insufficiency (principal); I51.7 Cardiomegaly; R55 Syncope and collapse
CPT/HCPCS: 93306

== ENCOUNTER → 2022-11-24 | Outpatient (CLI) | payer BC ==
--- NOTE | 2022-11-25 08:21 | MR ---
EXAMINATION TYPE: MR brain wo/w con DATE OF EXAM: 11/24/2022 COMPARISON: HISTORY: Syncope, head injury CONTRAST: Performed utilizing 10 mL intravenous Gadavist gadolinium contrast. TECHNIQUE: Multiplanar, multiecho imaging on a 3.0 Korina magnet is performed through the brain. Stud y is performed within 24 hours of arrival to the hospital. The craniovertebral junction is normal. The pituitary is normal. Optic chiasm is visualized is norm al. Diffusion-weighted imaging is performed. No abnormal hyperintensity is present to suggest an acute i ntracranial infarct or acute ischemic change. Signal through the brain is normal. There is preservation parikh-white matter differentiation. Temporal lobes appear symmetrical. No suspicious punctate inversion recovery sequence hyperintensities. Ventricles and sulci are appropriate for the patient age. No suspicious enhancement. IMPRESSIONS: 1. No acute intracranial processes pre or postcontrast MRI brain
== END | disposition home or self-care (01) ==
LOC: RADMRIMAIN 15:34
PROVIDERS: ATTEND Psychiatry & Neurology Neurology
DX: C71.9 Malignant neoplasm of brain, unspecified (principal); S09.90XA Unspecified injury of head, initial encounter; R55 Syncope and collapse; R56.9 Unspecified convulsions; X58.XXXA Exposure to other specified factors, initial encounter
CPT/HCPCS: 70553; A9585

== ENCOUNTER → 2023-03-29 | Outpatient (CLI) | payer BC | END | disposition home or self-care (01) | LOC: LABWHC1 08:51 | PROVIDERS: ATTEND Family Medicine | DX: L29.9 Pruritus, unspecified (principal) | CPT/HCPCS: 36415; 82785 ==

== ENCOUNTER → 2023-10-04 | Outpatient (CLI) | payer BC ==
--- NOTE | 2023-10-11 22:19 | MR ---
EXAMINATION TYPE: MR shoulder LT wo con DATE OF EXAM: 10/04/2023 COMPARISON: Outside left shoulder x-ray September 30, 2023 HISTORY: Left shoulder pain x6 weeks ago, Had a seizure fell and hit shoulder TECHNIQUE: Multiplanar, multisequence imaging of the left shoulder is performed without contrast. FINDINGS: Rotator Cuff: Some increased signal in the supraspinatus tendon. Infraspinatus tendon intact. Subscap ularis tendon is thickened but intact. The rotator cuff muscle bulk is preserved.. Acromioclavicular Joint: Mild to moderate narrowing and capsular hypertrophy. No significant spurring . Type II downsloping acromion. Glenohumeral Joint: Narrowing is present. Small to moderate-sized joint effusion. No significant spur ring. Labrum: Increased signal superior labrum coronal image 15. Biceps Tendon: The long head of biceps is in normal location within bicipital groove. Bone marrow signal: Osseous defect in the posterior aspect of the humeral head. Deformity of the ante rior-inferior osseous glenoid. Other: No additional significant abnormality is appreciated. IMPRESSION: 1. Bony Hill-Sachs deformity and suspected associated Bankart lesion consistent with trauma related t o shoulder dislocation injury. 2. Superior labral tear. 3. Small to moderate-size glenohumeral joint effusion. 4. No rotator cuff tear.
== END | disposition home or self-care (01) ==
LOC: RADMRIMAIN 18:58
PROVIDERS: ATTEND Orthopaedic Surgery
DX: S43.432A Superior glenoid labrum lesion of left shoulder, initial encounter (principal); M25.412 Effusion, left shoulder

== ENCOUNTER → 2023-10-28 | Outpatient (CLI) | payer BC ==
[2023-10-28 15:34] LABS: Anion Gap 12.3 mmol/L (4.00-12.00); Carbon Dioxide 23.7 mmol/L (21.6-31.8); Potassium 4.4 mmol/L (3.5-5.5)
[2023-10-28 15:54] LABS: Basophils # (A) 0.06 X 10*3/uL (0.00-0.10); Basophils % (A) 0.9 %; Eosinophils # (A) 0.42 X 10*3/uL (0.04-0.35); Eosinophils % (A) 6.4 %; HCT 49.9 % (39.6-50.0); HGB 17.5 g/dL (13.0-17.0); Lymphocytes % (A) 27.4 %; MCH 30.5 pg (27.0-32.0); MCHC 35.1 g/dL (32.0-37.0); MCV 87.1 FL (80.0-97.0); Mean Platelet Volume 10.2 FL (9.5-12.2); Monocytes # (A) 0.42 X 10*3/uL (0.20-1.00); Monocytes % (A) 6.4 %; NRBC Per 100 WBC 0 X 10*3/uL (0.00-0.01); Neutrophils # (A) 3.84 X 10*3/uL (1.80-7.70); Neutrophils % (A) 58.6 %; Platelet Count 309 X 10*3/uL (140-440); RBC 5.73 X 10*6/uL (4.40-5.60); RDW 11.9 % (11.5-14.5); WBC 6.56 X 10*3/uL (4.50-10.00)
== END | disposition home or self-care (01) ==
LOC: LABPAT 10:05
PROVIDERS: ATTEND Orthopaedic Surgery
DX: Z01.812 Encounter for preprocedural laboratory examination (principal); M75.42 Impingement syndrome of left shoulder
CPT/HCPCS: 80051; 85025

== ENCOUNTER 2023-11-10 09:52 | Day surgery (SDC) | payer BC ==
[2023-11-08 12:07] VITALS: BMI 32.5
--- NOTE | 2023-11-09 13:24 | HP ---
HISTORY AND PHYSICAL Surgery is scheduled for 11/10/2023. HISTORY OF PRESENT ILLNESS: Brian Shannon is a 33-year-old gentleman seen with progressive left shoulder pain. We discussed options regarding treatment. He elected to proceed with left shoulder arthroscopy. Consent was obtained. PAST MEDICAL HISTORY: Hypertension, hypothyroidism, seizure disorder. PAST SURGICAL HISTORY: Knee arthroscopy, tonsillectomy, sinus surgery, wrist surgery, wisdom tooth extraction. DAILY MEDICATIONS: 1. Metoprolol. 2. Synthroid. 3. Ibuprofen. 4. Tylenol. ALLERGIES: None. SOCIAL HISTORY: He denies current tobacco use. PHYSICAL EVALUATION OF THE LEFT SHOULDER: Flexion is 140 degrees. Abduction is 100 degrees. External rotation is 30 degrees with pain and weakness. He is tender along the anterolateral acromion, rotator cuff insertion site. Impingement is positive at 90 degrees. Apprehension sign is positive. Cross-body adduction sign is positive. Drop-arm sign is positive. Distal neurovascular exam is intact. IMAGING STUDIES: Left shoulder radiographs revealed a type 2 acromion, acromioclavicular joint osteoarthritis as well as Hill-Sachs lesion. Left shoulder MRI revealed labral tears, evidence of previous dislocation, type 2 acromion as well as acromioclavicular joint osteoarthritis. IMPRESSION: 1. Left shoulder impingement with labral tears. 2. Left shoulder acromioclavicular joint osteoarthritis. PLAN: Left shoulder arthroscopy, subacromial decompression and labral repair, possible Yovani procedure, and debridement. MMODL / IJN: [id number] /
[~2023-11-10 09:52] MED LIST changes: -DEXAMETHASONE SOD PHOSPHATE 4 MG/ML 1 ML VIAL IV ONE; -LACTATED RINGERS 1,000 ML IV SCH; +LIDOCAINE 1% (10MG/ML) FOR IV START INTRADERMA PRN; -ONDANSETRON 4 MG/2 ML VIAL IVP ONE; +SCOPOLAMINE 1 MG/72 HR PATCH TRANSDERM ONE; +droPERidol 5 MG/2 ML VIAL IVP ONE
[2023-11-10] MEDS: IV FLUID CONTINUATION 1,000 ML IV ONE (10:08)
[2023-11-10] MEDS: DEXAMETHASONE SOD PHOSPHATE 4 MG/ML 1 ML VIAL IV ONE (10:34)
[2023-11-10] MEDS: LACTATED RINGERS 1,000 ML IV SCH (10:34)
[2023-11-10] MEDS: ONDANSETRON 4 MG/2 ML VIAL IVP ONE (10:34)
[2023-11-10] MEDS: fentaNYL (PF) 50 MCG/ML 2 ML AMP IVP ONE (10:36)
[2023-11-10] MEDS: MIDAZOLAM 2 MG/2 ML VIAL IVP ONE (10:36)
[2023-11-10] MEDS ORDERED: MIDAZOLAM 2 MG/2 ML VIAL ONE (11:27)
[2023-11-10] MEDS ORDERED: LIDOCAINE 1% INJ 10MG/ML (20 ML MDV) ONE (11:27)
[2023-11-10] MEDS ORDERED: ROPIVACAINE 5 MG/ML 30 ML VIAL ONE (11:27)
[2023-11-10] MEDS ORDERED: PROPOFOL 10 MG/ML 20 ML VIAL IV ONE (11:27)
[2023-11-10] MEDS ORDERED: fentaNYL (PF) 50 MCG/ML 2 ML AMP ONE (11:27)
[2023-11-10] MEDS ORDERED: SUCCINYLCHOLINE CHLORIDE 200 MG/10 ML VIAL IV ONE (11:27)
--- NOTE | 2023-11-10 12:13 | P.ANPRN ---
Procedure Note - Anesthesia - Nerve Block Performed Left Interscalene Single Time Out Performed: Yes (1035) Date of Procedure: 11/10/23 Procedure Start Time: 10:36 Procedure Stop Time: 10:41 Location of Patient: PreOp Indication: Acute Post-Operative Pain, Requested by Surgeon Specifically requested for management of pain by DrShantell: Prabhu Agarwal Sedation Type: Sedate with meaningful contact maintained Preparation: Sterile Prep Position: Supine Catheter: None Needle Types: Pajunk Needle Gauge: 21 Ultrasound used to visualize needle placement: Yes Ultrasound used to observe medication spread: Yes Injectate: 0.5% Ropivacaine (see comment for volume) (30cc) Blood Aspirated: No Pain Paresthesia on Injection Noted: No Resistance on Injection: Normal Image Stored and Saved: Yes Events: Uneventful and Well Tolerated
[2023-11-10] MEDS: LACTATED RINGERS 1,000 ML IV ONE (12:36)
--- NOTE | 2023-11-10 12:54 | P.OP ---
Date of Procedure: 11/10/23 Preoperative Diagnosis: Left shoulder impingement Postoperative Diagnosis: 1. Left shoulder impingement 2. Left shoulder labral tear Procedure(s) Performed: 1. Left shoulder arthroscopic subacromial decompression 2. Left shoulder arthroscopic labral repair Implants: 1Arthrex suture anchor Anesthesia: GETA, regional (Interscalene block) Surgeon: Prabhu Agarwal Laser Specialist #1: Helder Izaguirre Estimated Blood Loss (ml): 8 Pathology: none sent Condition: stable Disposition: PACU Indications for Procedure: 33-year-old gentleman seen with progressive left shoulder pain. We discussed options regarding treatment. He elected to proceed with arthroscopy. Operative Findings: See description of procedure Description of Procedure: Patient underwent an interscalene block by department of anesthesia. The patient was then taken to the operative suite. The patient underwent a general anesthetic by the department of anesthesia. The patient was placed into a lateral position and secured. There was appropriate padding of the bony prominence. Left shoulder was then prepped and draped in normal sterile orthopedic fashion. We placed the extremity in 10 pounds of longitudinal traction. A posterior incision was now made for a posterior working portal site. The trocar and cannula were inserted into the glenohumeral joint. Arthroscopy was initiated. Spinal needle was now inserted anteriorly, to ascertain the anterior working portal site. An incision was now made in that area, a trocar was inserted followed by a probe. There was a significant anterior labral tear present. There was no significant chondromalacia. The biceps appeared intact. There was some mild hyperemia of the biceps but not enough to warrant tenodesis. I thoroughly probed to the labral tear and noted that the anterior-inferior portion was macerated and not repairable but there was a small segment superiorly that was repairable. I decided to proceed with a repair of that superior anterior labral tear. I now inserted a cannula through the anterior portal site. I now abraded the anterior glenoid getting down to bleeding bone. With the assistance of Slick BOOGIE now drilled a hole in the bony bed for insertion of an Arthrex all soft tissue anchor. With the assistance of Slick BOOGIE now introduced the all soft tissue Arthrex anchor into that bony bed. We now shuttled the suture around the anterior labral tear. We now tied down that labrum right to the bony bed. I probed the repair and it was stable. At this point instruments removed from the glenohumeral joint. Utilizing the posterior working portal site, the trocar and cannula were inserted into the subacromial space. Arthroscopy initiated. I made an incision 2 fingerbreadths lateral to the acromion. I introduced my trocar followed by my ArthroCare ablator. I now began ablating thick subacromial bursal tissue, which exposed the undersurface of the anterior acromion. There was diminished subacromial space. There was a very prominent anterior acromion. A motorized bur was introduced and a subacromial decompression was performed. I also excised some osteophytes off the inferior aspect of the distal clavicle. The AC joint was visualized and noted to be mildly arthritic. I now thoroughly probed the rotator cuff tendon. There was no evidence for any tear. Instruments now removed from the portal sites. All portal sites were approximated with nylon suture. Sterile dressings were applied followed by a shoulder immobilizer. Helder BOOGIE assisted in this complex case. The patient was awakened, transferred to a bed, and taken to recovery in stable condition.
[2023-11-10 13:02] VITALS: TEMP 96.8
[2023-11-10 13:12] VITALS: RESP 16
[2023-11-10 14:17] VITALS: BP 128/88; PULSE 95
== END 2023-11-10 14:22 | disposition home or self-care (01) ==
LOC: OR 09:52
PROVIDERS: ATTEND Orthopaedic Surgery
DX: M19.012 Primary osteoarthritis, left shoulder (principal); I10 Essential (primary) hypertension; E03.9 Hypothyroidism, unspecified; G40.909 Epilepsy, unspecified, not intractable, without status epilepticus; K21.9 Gastro-esophageal reflux disease without esophagitis; F17.200 Nicotine dependence, unspecified, uncomplicated; F41.9 Anxiety disorder, unspecified; F32.A Depression, unspecified; R00.0 Tachycardia, unspecified; X58.XXXA Exposure to other specified factors, initial encounter; Z79.890 Hormone replacement therapy; Z90.89 Acquired absence of other organs; Z79.899 Other long term (current) drug therapy; Z98.890 Other specified postprocedural states; Z79.1 Long term (current) use of non-steroidal anti-inflammatories (NSAID)
CPT/HCPCS: 64415; 29824; 29826; C1713 ×3; J2250; J0330; J1100; J0690; J2405; J2001; J3010; J2795; J2704

== ENCOUNTER → 2024-07-07 | Outpatient (CLI) | payer BC ==
[2024-07-08 06:36] LABS: Basophils # (A) 0.06 X 10*3/uL (0.00-0.10); Basophils % (A) 0.9 %; Eosinophils # (A) 0.48 X 10*3/uL (0.04-0.35); Eosinophils % (A) 7.1 %; HCT 50.6 % (39.6-50.0); HGB 17.1 g/dL (13.0-17.0); Lymphocytes # (A) 2.17 X 10*3/uL (0.90-5.00); Lymphocytes % (A) 32.2 %; MCH 30.3 pg (27.0-32.0); MCHC 33.8 g/dL (32.0-37.0); MCV 89.6 FL (80.0-97.0); Mean Platelet Volume 10.5 FL (9.5-12.2); Monocytes # (A) 0.52 X 10*3/uL (0.20-1.00); Monocytes % (A) 7.7 %; NRBC Per 100 WBC 0 X 10*3/uL (0.00-0.01); Neutrophils # (A) 3.49 X 10*3/uL (1.80-7.70); Neutrophils % (A) 51.8 %; Platelet Count 319 X 10*3/uL (140-440); RBC 5.65 X 10*6/uL (4.40-5.60); RDW 11.9 % (11.5-14.5); WBC 6.74 X 10*3/uL (4.50-10.00)
[2024-07-08 08:37] LABS: ALT 27 U/L (10-49); AST 31 U/L (14-35); Albumin 4.2 g/dL (3.8-4.9); Albumin/Globulin Ratio 1.75 Ratio (1.60-3.17); Alkaline Phosphatase 100 U/L (41-126); Blood Urea Nitrogen 13.1 mg/dL (9.0-27.0); Calcium 9.4 mg/dL (8.7-10.3); Carbon Dioxide 20.5 mmol/L (21.6-31.8); Chloride 104 mmol/L (96-109); Chol/HDL Ratio 6.95 Ratio; Globulin 2.4 g/dL (1.6-3.3); Glucose 93 mg/dL (70-110); LDL Cholesterol,Calculated 152.9 mg/dL (0.0-131.0); Potassium 4.2 mmol/L (3.5-5.5); Sodium 137 mmol/L (135-145); Total Bilirubin 0.5 mg/dL (0.3-1.2); Total Protein 6.6 g/dL (6.2-8.2)
== END | disposition home or self-care (01) ==
LOC: LABWHC1 10:42
PROVIDERS: ATTEND Nurse Practitioner Family
DX: Z00.00 Encounter for general adult medical examination without abnormal findings (principal); E78.2 Mixed hyperlipidemia
CPT/HCPCS: 36415; 80053; 80061; 84439; 84443; 84481; 85025